=== PATIENT | female | born 1940 | race Two or more races ===

== ENCOUNTER → 2020-08-02 11:45 | Outpatient (BNVA) | payer MEDICARE, MEDICAID, SELFPAY | PROVIDERS: PCP Internal Medicine; Visit Provider Internal Medicine Cardiovascular Disease | DX: I70.0 Atherosclerosis of aorta (principal); I35.1 Nonrheumatic aortic (valve) insufficiency; I51.89 Other ill-defined heart diseases | CPT/HCPCS: 93005; 99212 ==

== ENCOUNTER → 2021-09-08 08:37 | Outpatient (REF) | payer MEDICARE, MEDICAID, SELFPAY ==
--- NOTE | 2021-09-08 08:54 | CA_ITS ---
Transthoracic Echocardiogram Patient (Last, First, Middle): Sherry Randolph, Gender: Female Date of : 1940 Age: 81 Procedure Date: 09/08/2021 Procedure Type: Transthoracic Echocardiogram Location: OP Height: 154.94 cm Weight: 63.5 kg BSA: 1.62 m2 Heart Rate: bpm BP: 139 / 77 mmHg Carpet Layer Helper: ERIKA Referring MD: Thad Nieves MD Symptoms: I35.1 NON RHEU AORTIC V I, I10 HTN I51.89 OTHER HD Study Quality: Good ECG Rhythm: Sinus Conclusions: - The left ventricular systolic function is normal. The calculated ejection fraction is 67% by biplane method. - There is mild aortic valve stenosis. There is moderate aortic valve regurgitation. - There is mild mitral valve regurgitation. - There is mild tricuspid valve regurgitation. - Mild pulmonary hypertension is present. Findings Left Ventricle Normal left ventricular cavity size. The left ventricular systolic function is normal. The calculated ejection fraction is 67% by biplane method. There is no evidence of regional wall motion abnormalities. E/E prime ratio is >15, consistent with elevated filling pressures. Evidence suggests grade II (moderate) diastolic dysfunction. There is mild septal asymmetric hypertrophy. Right Ventricle Normal right ventricular cavity size and systolic function. Atria The left atrium is severely dilated. The right atrium is normal in size. Aortic Valve There is mild calcification of the aortic valve. There is mild aortic valve stenosis. The mean gradient is 13 mmHg. The aortic valve area is 1.75 cm2. There is moderate aortic valve regurgitation. Dimensionless index 0.5. Mitral Valve There is mild mitral annular calcification. There is mild mitral valve regurgitation. There is no mitral valve stenosis. Pulmonic Valve There is mild pulmonic valve regurgitation. Tricuspid Valve Normal tricuspid valve structure. There is mild tricuspid valve regurgitation. The right ventricular systolic pressure is 44 mmHg. Mild pulmonary hypertension is present. Great Vessels The asc aorta is normal in size. Venous The inferior vena cava is normal in size and collapses greater than 50% with inspiration. Pericardium/Pleural There is no evidence of pericardial effusion. Prior Study Comparison No significant change compared to prior study dated: 05/25/2019. Measurements 2D Linear Measurements IVSd: 1.09 0.6-0.9/0.6-1.0 cm LVIDd: 4.57 3.9-5.3/4.2-5.9 cm LVIDd Index: 2.82 2.4-3.2/2.2-3.1 cm/m2 LVIDs: 3.16 2.0-3.6 cm LVPWd: 0.95 0.7-1.1 cm LA Diam: 3.30 2.7-3.8/3.0-4.0 cm LAIDs Index: 2.04 1.5-2.3 cm/m2 LV Mass: 200.69 67-162/88-224 g LV Mass Index: 123.88 43-95/49-115 g/m2 LVOT Diam: 2.00 3.0+(-)1.3 cm 2D Systolic Function EF 4C: 68.70 >55% EF 2C: 67.00 >55% EF BiP: 66.70 >55% Mitral Valve MV Pk E: 1.03 MV PK A: 0.72 MV Decel Time: 184.00 E/A: 1.40 E'Lateral: 8.27 E'Medial: 4.68 E/E' Med: 22.00 E/E' Lat: 12.50 PHT: 54.00 MVA PHT: 4.07 Decel [place]: 5.61 Aortic Valve AoV Pk Neftali: 2.40 AoV Mn Neftali: 1.70 AoV VTI: 0.65 AoV Pk Grad: 23.00 Aov Mn Grad: 13.00 ADA Cont.VTI: 1.75 AI Pk Neftali: 5.47 AI [place]: 2.91 LVOT LVOT Pk Neftali: 1.20 LVOT Mn Neftali: 0.98 LVOT VTI: 0.36 LVOT Pk Grad: 6.00 LVOT Mn Grad: 4.00 LVOT Diam: 2.00 LVOT Area: 3.14 Diastolic Function MV Pk E: 1.03 MV Pk A: 0.72 E/A: 1.40 E'Medial: 4.68 E/E' Med: 22.00 E' Laterial: 8.27 E/E' Lat: 12.50 Right Ventricle TAPSE (mm): 18.40 TVS' Neftali: 9.14 Tricuspid Valve TR Pk Neftali: 3.22 TR Pk Grad: 41.00 RA Press: 3.00 RVSP: 44.00 Great Vessels Aorta Sinus of Valsalva: 3.03 2.0-3.[address] [place]: 2.34 1.7-3.4 cm Ao Asc: 2.70 2.1-3.4 cm Ao Arch: 3.00 Updated in Other Vendor System with Status of Final Arvin Olvera MD electronically signed on 09/09/2021 11:33:08 AM with status of Final
== END ==
LOC: HO.CARD 08:37
PROVIDERS: Visit Provider Internal Medicine Cardiovascular Disease
DX: I36.1 Nonrheumatic tricuspid (valve) insufficiency (principal)
CPT/HCPCS: 93306

== ENCOUNTER → 2021-09-22 13:02 | Outpatient (BNVA) | payer MEDICARE, MEDICAID, SELFPAY | PROVIDERS: PCP Internal Medicine; Referring Provider Internal Medicine; Visit Provider Internal Medicine Cardiovascular Disease | DX: R07.2 Precordial pain (principal); I35.1 Nonrheumatic aortic (valve) insufficiency; I35.0 Nonrheumatic aortic (valve) stenosis; Z79.82 Long term (current) use of aspirin | CPT/HCPCS: 93005; 99212 ==

== ENCOUNTER → 2021-10-08 08:21 | Outpatient (REF) | payer MEDICARE, MEDICAID, SELFPAY ==
--- NOTE | ~2021-10-08 | NM_ITS ---
Lexiscan Myocardial perfusion study Indication: Chest pain, assess for coronary disease and ischemia Technique: The patient was brought in for a Lexiscan perfusion study on 10/08/2021 and was injected 0.4 mg of Lexiscan intravenously. Within a minute of this injection 30 mCi of sestamibi was given intravenously. Images were obtained using the SPECT gamma camera interlaced with the gating device. Images were obtained in supine position. Resting perfusion study was performed on 10/09/2021. Patient was administered 30 mCi of sestamibi intravenously at rest. Images were then obtained in supine position. Total DLP 74mGy-cm. Images were processed with the software and compared side to side in short axis, horizontal long axis and vertical long axis views. Findings: Raw acquisition reviewed. The stress perfusion study showed no significant perfusion abnormality. With CT attenuation correction, perfusion in the anterior wall as well as apex looks worse most likely artifactual. The gated study shows diminished LV systolic function with calculated LVEF of 47%. LV cavity is normal in size. The gated study shows normal wall thickening and contraction of segments. Resting study shows no significant perfusion abnormality. Gating at rest reveals normal wall motion with ejection fraction at 49%. The findings are consistent with no definite reversible or fixed perfusion defects. NM/NM michelle perf SPECT rest & str Impression: 1. Myocardial perfusion imaging study shows likely normal myocardial perfusion. No definitive evidence of any ischemia or infarction. 2. Gated LVEF is 47% during stress and 49% during rest. 3. Transient ischemic dilatation not present. EKG component of the test reported separately.
--- NOTE | 2021-10-08 08:26 | CA_ITS ---
Acquisition Time: 2021-10-08 08:25:18 Total Exercise Time: 00:02:00 Test Indications: CP Medications: SEE CHART Protocol: LEXISCAN Max HR: 091 BPM 65% of Pred: 140 BPM Max BP: 122/064 mmHG Max Work Load: 1.0 METS Pharmacological stress test using Lexiscan while sitting and kicking her legs. Pt tolerated well, denies any anginal sx. Mild SOB and BAEZ. EKG with occasional PVC s non-diagnostic for ischemia. Nuclear images to follow. Normotensive response to test. Test reviewed with Dr. Nieves. Referred By: Thad Nieves Overread By: Nava Hanna NP
== END ==
LOC: HO.CARD 08:21
PROVIDERS: Visit Provider Internal Medicine Cardiovascular Disease
DX: R07.2 Precordial pain (principal)
CPT/HCPCS: 78452; 93017; A9500; J0280; J2785

== ENCOUNTER → 2022-02-03 09:17 | Outpatient (BNVA) | payer MEDICARE, MEDICAID, SELFPAY | PROVIDERS: PCP Internal Medicine; Referring Provider Internal Medicine; Visit Provider Internal Medicine Cardiovascular Disease | DX: I35.0 Nonrheumatic aortic (valve) stenosis (principal); R00.1 Bradycardia, unspecified | CPT/HCPCS: 93005; 99212 ==

== ENCOUNTER → 2022-03-03 10:41 | Outpatient (REF) | payer MEDICARE, MEDICAID, SELFPAY ==
--- NOTE | 2022-03-03 10:45 | HM_ITS ---
Conclusion: 1. Patient was monitored for total period of 3 days and 2 hours 2. Baseline rhythm was normal sinus rhythm with average heart of 69 beats per minute 3. No significant pauses or bradycardia noted 4. Total of 295 isolated PVCs accounting for 0.11% of total beats account for occasional PVCs 5. Total of 5127 PACs accounting for 1.89% of total beats accounting for frequent PACs 6. Few short burst of SVTs consistent with atrial tachycardia 7. No patient reported events MTDD
== END ==
LOC: HO.CARD 10:41
PROVIDERS: PCP Internal Medicine; Visit Provider Internal Medicine Cardiovascular Disease
DX: R00.1 Bradycardia, unspecified (principal)
CPT/HCPCS: 93242

== ENCOUNTER → 2022-07-16 14:56 | Outpatient (BNVA) | payer MEDICARE, MEDICAID, SELFPAY | PROVIDERS: PCP Internal Medicine; Referring Provider Internal Medicine; Visit Provider Internal Medicine Cardiovascular Disease | DX: I35.0 Nonrheumatic aortic (valve) stenosis (principal); I10 Essential (primary) hypertension | CPT/HCPCS: 99212 ==

== ENCOUNTER → 2022-09-22 09:48 | Outpatient (REF) | payer MEDICARE, MEDICAID, SELFPAY ==
--- NOTE | 2022-09-22 09:55 | CA_ITS ---
Transthoracic Echocardiogram Patient (Last, First, Middle): Sherry Winter, Gender: Female Date of : 1940 Age: 82 Procedure Date: 09/22/2022 Procedure Type: Transthoracic Echocardiogram Location: OP Height: 152.4 cm Weight: 61.24 kg BSA: 1.58 m2 Heart Rate: 55 bpm BP: 130 / 62 mmHg Dormitory Maid: SB Referring MD: Thad Nieves MD Symptoms: I35.1 - Nonrheumatic aortic (valve) insufficiency Study Quality: Adequate ECG Rhythm: Bradycardia Conclusions: - The left ventricular systolic function is normal. The calculated ejection fraction is 60% by biplane method. - The left atrium is severely dilated. - There is mild to moderate aortic valve stenosis. The mean gradient is 19 mmHg. The aortic valve area is 1.19 cm2. There is mild to moderate aortic valve regurgitation. - There is moderate posterior mitral annular calcification. - Mild pulmonary hypertension is present. Findings Left Ventricle Normal left ventricular cavity size. There is normal left ventricular wall thickness. The left ventricular systolic function is normal. The calculated ejection fraction is 60% by biplane method. There is no evidence of regional wall motion abnormalities. Evidence suggests grade II (moderate) diastolic dysfunction. LV peak GLS -17%. Right Ventricle Normal right ventricular cavity size and systolic function. Atria The left atrium is severely dilated. The right atrium is normal in size. Aortic Valve There is moderate calcification of the aortic valve. There is mild to moderate aortic valve stenosis. The mean gradient is 19 mmHg. The aortic valve area is 1.19 cm2. There is mild to moderate aortic valve regurgitation. Dimensionless index 0.38. Stroke volume index 53ml/m2. Mitral Valve There is moderate posterior mitral annular calcification. There is mild mitral valve regurgitation. There is no mitral valve stenosis. Pulmonic Valve There is trace to mild pulmonic valve regurgitation. Tricuspid Valve There is mild tricuspid valve regurgitation. Mild pulmonary hypertension is present. Great Vessels The aorta was not well visualized. The aortic annulus is normal in size. Venous The inferior vena cava is normal in size and collapses greater than 50% with inspiration. Pericardium/Pleural There is no evidence of pericardial effusion. Prior Study Comparison No significant change compared to prior study dated: 09/08/2021. Measurements 2D Linear Measurements IVSd: 0.63 0.6-0.9/0.6-1.0 cm LVIDd: 5.14 3.9-5.3/4.2-5.9 cm LVIDd Index: 3.25 2.4-3.2/2.2-3.1 cm/m2 LVIDs: 3.53 2.0-3.6 cm LVPWd: 0.53 0.7-1.1 cm LA Diam: 3.50 2.7-3.8/3.0-4.0 cm LAIDs Index: 2.22 1.5-2.3 cm/m2 LV Mass: 118.33 67-162/88-224 g LV Mass Index: 74.89 43-95/49-115 g/m2 LVOT Diam: 2.00 3.0+(-)1.3 cm 2D Systolic Function EF 4C: 60.90 >55% EF 2C: 57.90 >55% EF BiP: 60.00 >55% Mitral Valve MV Pk E: 0.92 MV PK A: 0.92 MV Decel Time: 153.00 E/A: 1.00 E'Lateral: 6.74 E'Medial: 4.24 E/E' Med: 21.70 E/E' Lat: 13.70 PHT: 45.00 MVA PHT: 4.89 Decel [place]: 6.03 Aortic Valve AoV Pk Neftali: 2.87 AoV Mn Neftali: 2.08 AoV VTI: 0.70 AoV Pk Grad: 33.00 Aov Mn Grad: 19.00 ADA Cont.VTI: 1.19 AI Pk Neftali: 4.90 AI VTI: 3.19 LVOT LVOT Pk Neftali: 1.08 LVOT Mn Neftali: 0.76 LVOT VTI: 0.27 LVOT Pk Grad: 5.00 LVOT Mn Grad: 3.00 LVOT Diam: 2.00 LVOT Area: 3.14 Diastolic Function MV Pk E: 0.92 MV Pk A: 0.92 E/A: 1.00 E'Medial: 4.24 E/E' Med: 21.70 E' Laterial: 6.74 E/E' Lat: 13.70 Right Ventricle TAPSE (mm): 20.00 TVS' Neftali: 11.60 Tricuspid Valve TR Pk Neftali: 3.24 TR Pk Grad: 42.00 RA Press: 3.00 RVSP: 45.00 Great Vessels Aorta Sinus of Valsalva: 3.10 2.0-3.5 cm Ao Asc: 3.20 2.1-3.4 cm Ao Arch: 2.80 Pulmonary Veins Pulm Vein S/D 1.10 Pulmonary Valve PV Pk Neftali: 1.04 Peak PV Grad: 4.00 DE Pk Neftali: 1.48 Updated in Other Vendor System with Status of Final Arvin Olvera MD electronically signed on 09/22/2022 4:31:56 PM with status of Final
== END ==
LOC: HO.CARD 09:48
PROVIDERS: PCP Internal Medicine; Visit Provider Internal Medicine Cardiovascular Disease
DX: I35.1 Nonrheumatic aortic (valve) insufficiency (principal)
CPT/HCPCS: 93306; 93356

== ENCOUNTER 2023-01-12 13:40 | Outpatient (AMB) | payer MEDICARE, MEDICAID, SELFPAY ==
--- NOTE | 2023-01-12 13:42 | A.OFFVIS_ITS ---
Intake Vital Signs 01/12/23 13:43 Height 5 ft 1 in Weight 130 lb 1.164 oz BMI 24.6 BP 120/76 Blood Pressure Location Lt brachial Position Sitting Pulse 58 Intake Visit Reasons: 6 mth s/p echo Intake Note: 6 month follow-up with ekg after echo feeling good Clinical Training Coordinator Required: Yes Clinical Training Coordinator Name: Marivel barroso Pet Care Assistant: Pet Care Assistant Present Accompanied by: Daughter Allergies No Known Allergies Allergy (Verified 02/03/22 09:20) Medication List - Last Reconciled 01/12/23 by Thad Nieves MD amlodipine 5 mg PO BID 90 days aspirin (Adult Aspirin Regimen) 81 mg PO DAILY atorvastatin 20 mg PO DAILY budesonide-formoterol 80-4.5 mcg/actuation inhalation tiotropium bromide inhalation tiotropium bromide 1.25 mcg/actuation (Spiriva Respimat) 2 puffs inhalation DAILY HPI HPI Comments History of Present Illness Details Sherry comes for follow-up. Recent echocardiogram shows moderate to moderately severe aortic stenosis. History was obtained with help of a certifi ed radio television technical director. She denies any exertional chest pain of worsening shortness of breath. Complains of fatigue but this is not consistent. Denies any orthopnea, PND. No lightheadedness, syncope. Denies any prolonged palpitation irregular heartbeat. She does complain of hypertrophic scar at the site of prior sternotomy. [facility] Medical History Aortic regurgitation Aortic stenosis Diastolic dysfunction HTN (hypertension) Papillary fibroelastoma Thoracic aortic atherosclerosis Surgical History History of partial hysterectomy Hx of cardiac cath Hx of cholecystectomy Family History Father No problems noted. Mother CAD (coronary artery disease) Social History Alcohol intake: never Patient Tobacco Use Status: Never used Tobacco Review of Systems Const Denies chills, Denies fatigue, Denies fever(s), Denies frequent falls, Denies weakness, Denies weight gain and Denies weight loss ENT Denies dizziness Card Denies chest pain, Denies leg edema, Denies lightheadedness, Denies palpitations, Denies dyspnea, Denies dyspnea on exertion, Denies orthopnea and Denies other (loss of consciousness) Resp Denies cough, Denies dyspnea and Denies dyspnea on exertion GI Denies hematochezia and Denies change in stool character Musc Denies abnormal gait, Denies muscle weakness, Denies numbness, Denies radiating pain into limb and Denies tingling Neuro Denies abnormal gait, Denies dizziness, Denies frequent falls, Denies numbness, Denies tingling and Denies weakness Endo Denies fatigue and Denies palpitations Physical Exam Vital Signs: Last Vital Signs Pulse 58 01/12/23 13:43 BP 120/76 01/12/23 13:43 BMI result Body Mass Index 24.6 Const General: cooperative, comfortable, no acute distress, alert and awake Nutritional Appearance: overweight Orientation/consciousness: patient oriented x3 Limitations: no limitations Neck Neck: Yes trachea midline, Yes supple and Yes no JVD Chest Chest palpation & inspection: normal inspection of the chest and other (Te nderness at the site of keloid in the mid sternotomy site.) Resp Effort & Inspection: normal respiratory effort Auscultation: clear to auscultation bilaterally and diminished lung sounds Cardio Jugular venous distension: no JVD Palpation: normal PMI Rate: regular rate Rhythm: regular rhythm Heart sounds: S1 normal heart sound present, S2 normal heart sound present and Murmur heart sound present diastolic at the base and systolic mid, decrescendo and crescendo GI Auscultation: normal bowel sounds Skin General skin exam: no rashes or lesions noted Neuro General: patient oriented x3 and no focal motor deficits Extrem General: Yes no clubbing, cyanosis or edema Psych Appearance: grossly normal Office Procedures EKG Details: EKG shows sinus bradycardia 58 beats per minute with normal EKG [id number], Complete Assessment & Plan Assessment & Plan (1) Aortic stenosis: Code(s): I35.0 - Nonrheumatic aortic (valve) stenosis Plan: 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 Has not developed moderate aortic stenosis and [id number] aortic regurgitation. Clinically stable without any symptoms. Cardinal symptoms associated aortic stenosis were discussed. SBE prophylaxis as per ACC/ aha guidelines. Continue low-dose aspirin therapy for life. Continue aggressive control blood pressure see below. Continue aggressive statin therapy with goal LDL less than 70 mg/dL given that she has thoracic aortic athero sclerosis. Currently does not require any intervention for aortic valve disease. (2) HTN (hypertension): Code(s): I10 - Essential (primary) hypertension Plan: Hypertension with labile blood pressure with high pulse pressure consistent with diffuse atherosclerotic disease. Continue aggressive control blood pressure. Currently appears to be well optimized. Advised to avoid salt intake which is causing spikes in her blood pressure. Target goal blood pressure less than 140/80. Continue to monitor blood pressure at home. Will follow up in clinic in 1 year's time, sooner p.r.n.. Thank you for allowing me to partake in the care Orders: Orders CA echo transthoracic complete 50 Weeks I35.0 - Nonrheumatic aortic (valve) stenosis Coding Level of Care Code Est Pt Level 4 (36610) Diagnoses Aortic stenosis I35.0 HTN (hypertension) I10 CPT Codes EKG - CPT: [id number], Complete ([id number])
[2023-01-12 13:43] VITALS: BP 120/76; PULSE 58; BMI 24.6
== END 2023-01-12 14:05 | disposition home or self-care (01) ==
PROVIDERS: Visit Provider Internal Medicine Cardiovascular Disease
DX: I35.0 Nonrheumatic aortic (valve) stenosis (principal); I10 Essential (primary) hypertension
CPT/HCPCS: 93010; 99214

== ENCOUNTER → 2023-01-12 13:40 | Outpatient (BNVA) | payer MEDICARE, MEDICAID, SELFPAY | PROVIDERS: Visit Provider Internal Medicine Cardiovascular Disease | DX: I35.0 Nonrheumatic aortic (valve) stenosis (principal); I10 Essential (primary) hypertension; Z98.890 Other specified postprocedural states; Z79.82 Long term (current) use of aspirin; Z79.899 Other long term (current) drug therapy | CPT/HCPCS: 93005; 99212 ==

== ENCOUNTER 2023-06-16 10:55 | Outpatient (REF) | payer MEDICARE, MEDICAID, SELFPAY ==
[2023-06-16 16:49] LABS: Alanine Aminotransferase 12 U/L (0-31); Albumin Level 3.9 g/dL (3.5-5.0); Alkaline Phosphatase 121 U/L (39-117); Anion Gap 11 (12-20); Aspartate Amino Transferase 24 U/L (5-31); Bilirubin Total 0.5 mg/dL (0.0-1.0); Blood Urea Nitrogen 17 mg/dL (9-16); Calcium 10.1 mg/dL (8.4-10.2); Carbon Dioxide 28 mmol/L (22-29); Chloride 105 mmol/L (96-108); Estimated Glomerular Filt Rate > 60; Glucose Fasting 83 mg/dL (60-99); Potassium 4.2 mmol/L (3.3-5.1); Sodium 140 mmol/L (135-145); Total Protein 7.1 g/dL (6.5-8.0)
[2023-06-16 17:13] LABS: Vitamin D 25-OH Total 36.7 ng/mL (>30)
[2023-06-17 14:33] LABS: Vitamin B12 627 pg/mL (200-900)
== END 2023-06-16 10:56 | disposition home or self-care (01) ==
LOC: HO.CHCLDS 10:55
PROVIDERS: Visit Provider Internal Medicine
DX: R53.83 Other fatigue (principal); Z79.899 Other long term (current) drug therapy
CPT/HCPCS: 36415; 80053; 82306; 82607

== ENCOUNTER 2023-09-07 11:18 | Outpatient (REF) | payer MEDICARE, MEDICAID, SELFPAY ==
[2023-09-07 14:10] LABS: Lipase 38 U/L (8-78)
[2023-09-07 14:31] LABS: TSH reflex Free T4 0.59 uIU/mL (0.32-4.0)
== END 2023-09-07 11:19 | disposition home or self-care (01) ==
LOC: HO.LAB 11:18
PROVIDERS: PCP Internal Medicine; Visit Provider Nurse Practitioner Family
DX: R10.10 Upper abdominal pain, unspecified (principal); K59.04 Chronic idiopathic constipation; Z87.19 Personal history of other diseases of the digestive system
CPT/HCPCS: 36415; 83690; 84443; 99202

== ENCOUNTER 2023-09-07 11:18 | Outpatient (AMB) | payer MEDICARE, MEDICAID, SELFPAY ==
--- NOTE | 2023-09-07 11:24 | MHC.OFFVIS ---
Intake Vital Signs 09/07/23 11:29 Height 5 ft 1 in Weight 127 lb 13.89 oz BMI 24.2 BP 131/63 Blood Pressure Location Lt brachial Position Sitting Pulse 56 Intake Visit Reasons: Chronic Gastritis Intake Note: Sherry presents in the office as a new patient for chronic gastritis. CC: She is having pains in the stomach, she has had 3 bowel obstructions. This is her first GI specialist. Obstetrics And Gynecology Professor Required: Yes Allergies No Known Allergies Allergy (Verified 02/03/22 09:20) HPI Chronic Gastritis HPI Details 83-year-old female with past medical history of hypertension, CAD, hyperlipidemia, GERD, constipation, history of SBO is here today for initial consultation. Patient reports that she has never seen GI specialty, has been suffering with constipation for some time. Patient reports that last year she had 2 episodes of small-bowel obstruction and admitted to [facility]. This your patient was in [place] in June and was admitted again with small-bowel obstruction. Patient did not require surgical intervention. Patient was sent home with senna and MiraLax. States that she never received senna and states that MiraLax does not work. Patient uses prune juice and increased the amount of vegetables that she eats in order to have better bowel movements. Patient states that she continues to have constipation. Patient reports that she is drinking fluids, however she believes that she does not drink enough. Since discharge patient has been feeling well. Denies any abdominal pain or discomfort. However patient does report occasional epigastric pain that is not necessarily related to meals. Patient denies any nausea or vomiting. Denies any melena, hematochezia, unintentional weight loss or ribbon like stools. We will request records from [facility] from her last 2 admissions. Patient denies dyspepsia, dysphagia or odynophagia. Patient reports that she no longer takes anything for acid reflux and reports that she has been doing well [facility] Medical History Aortic stenosis Thoracic aortic atherosclerosis Aortic regurgitation Diastolic dysfunction HTN (hypertension) Papillary fibroelastoma Surgical History (Updated 09/07/23 @ 11:30 by BRISA Snow) Hx of colonoscopy Hx of cholecystectomy Hx of cardiac cath History of partial hysterectomy Family History Father No problems noted. Mother CAD (coronary artery disease) Social History Alcohol intake: never Patient Tobacco Use Status: Never used Tobacco Review of Systems Const Denies weight gain and Denies weight loss ENT Reports no additional complaints, Denies dysphagia and Denies odynophagia Card Reports no additional complaints Resp Reports no additional complaints GI Reports abdominal pain (Epigastric), Denies belching, Denies melena, Reports bloating, Denies change in bowel habits, Reports constipation, Denies dysphagia, Denies excessive flatus, Denies dyspepsia, Denies heartburn, Denies diarrhea, Denies loose stools, Denies nausea, Denies odynophagia and Denies vomiting Reports no additional complaints Musc Reports no additional complaints Neuro Reports no additional complaints Psych Reports no additional complaints Endo Reports no additional complaints Physical Exam Vital Signs: Last Vital Signs Pulse 56 09/07/23 11:29 BP 131/63 09/07/23 11:29 BMI result Body Mass Index 24.2 Const General: healthy appearing, no acute distress and well developed Nutritional Appearance: well nourished Orientation/consciousness: patient oriented x3 Resp Effort & Inspection: normal respiratory effort, able to speak in complete sentences, no tracheal deviation and symmetric chest movement Auscultation: clear to auscultation bilaterally Cardio Rate: regular rate GI Inspection: Yes normal to inspection and No distended Palpation (GI): Soft to palpation, not firm, nontender and No hepatosplenomegaly present Auscultation: normal bowel sounds General: Yes no CVA tenderness Back/Spine/Pelvis Back: no CVA tenderness Skin General skin exam: elasticity normal, turgor normal and dry skin Neuro General: patient oriented x3 Psych Appearance: grossly normal Mental Status: mental status grossly normal Assessment & Plan Assessment & Plan (1) History of small bowel obstruction: Code(s): Z87.19 - Personal history of other diseases of the digestive system (2) Abdominal pain: Code(s): R10.9 - Unspecified abdominal pain Qualifiers: Abdominal location: upper abdomen, unspecified Qualified Code(s): R10.10 - Upper abdominal pain, unspecified (3) Chronic idiopathic constipation: Code(s): K59.04 - Chronic idiopathic constipation Plan Patient has been suffering from chronic constipation and is not taking anything on a daily basis. The importance of staying on something every day discussed with patient. Patient will take 2 senna every evening to help her move her bowels better. Patient also was instructed to drink plenty fluids. Not sure what caused the obstructions in the past if it was constipation and increased peristalsis could have caused the blockage or if patient has any tumors that could be contributing to that. I will send her for enterography. Patient will return in 2 months, sooner on as needed basis. Patient is agreeable to this plan and verbalizes understanding of instructions. She was given the opportunity to ask questions and all questions answered. Thank you for allowing me to participate in her care Orders: Orders Lipase Today R10.9 - Unspecified abdominal pain TSH reflex Free T4 Today K59.00 - Constipation, unspecified CT enterography Today R10.9 - Unspecified abdominal pain, Z87.19 - Personal history of other diseases of the digestive system Medications: New sennosides (Natural Senna Laxative) 17.2 mg (2 x 8.6 mg) PO BEDTIME 60 tabs 3RF constipation K59.00 - Constipation, unspecified sennosides (Natural Senna Laxative) 17.2 mg (2 x 8.6 mg) PO BEDTIME 60 tabs 3RF constipation K59.00 - Constipation, unspecified Coding Level of Care Code New Pt Level 4 (73314) Diagnoses History of small bowel obstruction Z87.19 Pain of upper abdomen R10.10 Abdominal location: upper abdomen, unspecified Chronic idiopathic constipation K59.04 Time Spent (min) 45 Comment 30 minutes spent with patient and additional 15 minutes spent reviewing her records
[2023-09-07 11:29] VITALS: BP 131/63; PULSE 56; BMI 24.2
== END 2023-09-07 12:08 | disposition home or self-care (01) ==
PROVIDERS: PCP Internal Medicine; Visit Provider Nurse Practitioner Family
DX: K59.04 Chronic idiopathic constipation (principal); Z87.19 Personal history of other diseases of the digestive system
CPT/HCPCS: 99204

== ENCOUNTER 2023-10-27 09:08 | Outpatient (REF) | payer MEDICARE, MEDICAID, SELFPAY ==
--- NOTE | ~2023-10-27 | CT_ITS ---
EXAMINATION: CT ENTEROGRAPHY ABDOMEN AND PELVIS WITH CONTRAST CLINICAL INFORMATION: Personal history of other diseases of the digestive system COMPARISON: , Abdominal pain TECHNIQUE: Study performed with oral VoLumen (1350 mL) and 480 mL of water to distend the abdomen. The patient was injected with 85 mL Omnipaque 350 intravenous contrast which was administered without adverse effect. Coronal and sagittal reformatted images were obtained at the technologist's workstation. This CT examination was performed using dose optimization techniques as appropriate, variously including the following: *Automated exposure control *Adjustment of mA and/or kV according to patient size (this includes techniques or standardized protocols for targeted exams where dose is matched to indication/reason for exam; i.e. extremities or head) *Use of iterative reconstruction technique DLP: 342 mGy-cm FINDINGS: GASTROINTESTINAL FINDINGS: Malrotation of the small bowel. Stomach: Well-distended and normal in appearance. Small intestine: Satisfactorily distended and normal in appearance. Large intestine: Well-distended and normal in appearance. No perirectal changes demonstrated. The appendix is not visualized. Additional findings: No abnormal enhancement of the vasa recta or significant mesenteric or retroperitoneal lymphadenopathy is seen. No abdominal abscess or fistulous tract demonstrated. ABDOMINAL AND PELVIC CT FINDINGS: Liver, gallbladder, biliary tract: Status post cholecystectomy. Liver is unremarkable. No focal hepatic lesion or intrahepatic biliary ductal dilatation. Pancreas: Unremarkable. Spleen: Unremarkable. 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 Right renal hypertrophy with multiple lobulated appearing renal contour, no discrete renal lesion is visualized, some cortical thinning. No nephrolithiasis. No hydronephrosis. Ureters and bladder: Unremarkable. Lymphovascular structures: Unremarkable Bones: Scoliosis of the spine, degenerative changes of the spine. Partially visualized median sternotomy wires. Lung bases: Clear CT/CT enterography IMPRESSION: * Malrotation of the small bowel. No evidence of obstruction. 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 Right renal hypertrophy with multiple lobulated appearing renal contour, no discrete renal lesion is visualized, some cortical thinning.
[2023-10-27] MEDS: iohexoL 350 MG/ML 100 ML INFUS..BTL IV (10:48)
[2023-10-27] MEDS: Sorbitol/Mannit/Xanth Imaging 500 ML LIQUID 1500 ML PO (10:50)
[2023-10-27 16:26] LABS: Creatinine POC 0.8 mg/dL (0.5-1.4); GFR POC > 60
== END 2023-10-27 09:09 | disposition home or self-care (01) ==
LOC: HO.CT 09:08
PROVIDERS: PCP Internal Medicine; Visit Provider Nurse Practitioner Family
DX: R10.9 Unspecified abdominal pain (principal); Z87.19 Personal history of other diseases of the digestive system
CPT/HCPCS: 74177; 82565; Q9967

== ENCOUNTER 2023-11-08 10:14 | Outpatient (AMB) | payer MEDICARE, MEDICAID, SELFPAY ==
[2023-11-08 10:16] VITALS: BP 166/73; BMI 24.8
--- NOTE | 2023-11-08 10:16 | MHC.OFFVIS ---
Vital Signs 11/08/23 10:16 Height 5 ft 1 in Weight 131 lb 6.328 oz BMI 24.8 BP 166/73 H Blood Pressure Location Lt brachial Position Sitting Intake Visit Reasons: History of SBO, constipation Intake Note: Patient in office today in follow up of labs and CT. CC: Patient reports doing well from constipation and abdominal pain. She denies any new GI symptoms today. She reports having knee pain and sometimes feeling out of breath. Jet Engine Mechanic Required: Yes Accompanied by: Self / Same As Patient Allergies No Known Allergies Allergy (Verified 11/08/23 10:21) HPI HPI History of SBO, constipation: Details: LAST VISIT History of small bowel obstruction Abdominal pain Chronic idiopathic constipation Plan Patient has been suffering from chronic constipation and is not taking anything on a daily basis. The importance of staying on something every day discussed with patient. Patient will take 2 senna every evening to help her move her bowels better. Patient also was instructed to drink plenty fluids. Not sure what caused the obstructions in the past if it was constipation and increased peristalsis could have caused the blockage or if patient has any tumors that could be contributing to that. I will send her for enterography. Patient will return in 2 months, sooner on as needed basis. Patient is agreeable to this plan and verbalizes understanding of instructions. She was given the opportunity to ask questions and all questions answered. ? Thank you for allowing me to participate in her care Orders Orders Lipase Today R10.9 TSH reflex Free T4 Today K59.00 CT enterography Today R10.9, Z87.19 Medications New sennosides (Natural Senna Laxative) 17.2 mg (2 x 8.6 mg) PO BEDTIME 60 tabs 3RF constipation K59.00 sennosides (Natural Senna Laxative) 17.2 mg (2 x 8.6 mg) PO BEDTIME 60 tabs 3RF constipation K59.00 TODAY'S VISIT Patient is here today for follow-up and to discuss CT enterography results as well as blood work. Patient had CT enterography done on the 26 of October and results are not available yet. Patient reports that she has been feeling better since the last time I have seen her. She is taking Senokot 2 tablets every night and reports that she is moving her bowels daily. Patient no longer is experiencing abdominal pain. Patient states that she was told that she has hernia while seen in the hospital in [place]. Patient denies abdominal pain, however she reports that she can feel the hernia when she presses on her upper abdomen, no pain. Patient denies any nausea or vomiting. Denies any melena, hematochezia, unintentional weight loss or ribbon like stools. PFSH Medical History Aortic stenosis Thoracic aortic atherosclerosis Aortic regurgitation Diastolic dysfunction HTN (hypertension) Papillary fibroelastoma Surgical History Hx of colonoscopy Hx of cholecystectomy Hx of cardiac cath History of partial hysterectomy Family History Father No problems noted. Mother CAD (coronary artery disease) Social History Alcohol intake: never Patient Tobacco Use Status: Never used Tobacco Review of Systems Const Denies weight gain and Denies weight loss ENT Reports no additional complaints, Denies dysphagia and Denies odynophagia Card Reports no additional complaints Resp Reports no additional complaints GI Denies abdominal pain, Denies belching, Denies melena, Denies bloating, Denies change in bowel habits, Denies dysphagia, Denies excessive flatus, Denies dyspepsia, Denies heartburn, Denies diarrhea, Denies loose stools, Denies nausea, Denies odynophagia and Denies vomiting Musc Reports no additional complaints Neuro Reports no additional complaints Psych Reports no additional complaints Endo Reports no additional complaints Physical Exam Vital Signs: BMI result Body Mass Index 24.8 Const General: healthy appearing, no acute distress and well developed Nutritional Appearance: well nourished Orientation/consciousness: patient oriented x3 Resp Effort & Inspection: normal respiratory effort, able to speak in complete sentences, no tracheal deviation and symmetric chest movement Auscultation: clear to auscultation bilaterally Cardio Rate: regular rate GI Inspection: Yes normal to inspection and No distended Palpation (GI): Soft to palpation, not firm, nontender and No hepatosplenomegaly present Auscultation: normal bowel sounds General: Yes no CVA tenderness Back/Spine/Pelvis Back: no CVA tenderness Skin General skin exam: elasticity normal, turgor normal and dry skin Neuro General: patient oriented x3 Psych Appearance: grossly normal Mental Status: mental status grossly normal Results Reviewed Results Reviewed: Laboratory Tests 09/07/23 12:39 Lipase 38 TSH 0.59 Assessment & Plan Assessment & Plan (1) History of small bowel obstruction: Code(s): Z87.19 - Personal history of other diseases of the digestive system (2) Abdominal pain: Code(s): R10.9 - Unspecified abdominal pain Qualifiers: Abdominal location: left lower quadrant Qualified Code(s): R10.32 - Left lower quadrant pain (3) Chronic idiopathic constipation: Code(s): K59.04 - Chronic idiopathic constipation Plan Continue taking senna every night. Increase fluid intake and activity to promote better bowel motility. No tenderness noted on PE. Continue avoiding dietary triggers in late night snacking. Patient will be seen in 6 months, sooner on as needed basis. She is agreeable to this plan and verbalizes understanding of instructions. She was given the opportunity to ask questions and all questions answered. Thank you for allowing me to participate in his care Medications: Refilled sennosides (Natural Senna Laxative) 17.2 mg (2 x 8.6 mg) PO BEDTIME 180 tabs 3RF constipation K59.00 - Constipation, unspecified Coding Level of Care Code Est Pt Level 3 (33059) Diagnoses History of small bowel obstruction Z87.19 Left lower quadrant abdominal pain R10.32 Abdominal location: left lower quadrant Chronic idiopathic constipation K59.04 Time Spent (min) 25 Comment 15 minutes spent with patient and additional 10 minutes spent reviewing her records
== END 2023-11-08 10:44 | disposition home or self-care (01) ==
PROVIDERS: PCP Internal Medicine; Visit Provider Nurse Practitioner Family
DX: Z87.19 Personal history of other diseases of the digestive system (principal); R10.32 Left lower quadrant pain; K59.04 Chronic idiopathic constipation
CPT/HCPCS: 99213

== ENCOUNTER → 2023-11-08 10:14 | Outpatient (BNVA) | payer MEDICARE, MEDICAID, SELFPAY | PROVIDERS: PCP Internal Medicine; Visit Provider Nurse Practitioner Family | DX: K59.04 Chronic idiopathic constipation (principal); R10.32 Left lower quadrant pain; Z87.19 Personal history of other diseases of the digestive system; Z90.49 Acquired absence of other specified parts of digestive tract | CPT/HCPCS: 99212 ==

== ENCOUNTER 2024-01-13 13:11 | Outpatient (AMB) | payer MEDICARE, MEDICAID, SELFPAY ==
[2024-01-13 13:36] VITALS: BP 130/82; PULSE 67; BMI 22.9
--- NOTE | 2024-01-13 13:36 | A.OFFVIS_ITS ---
Vital Signs 01/13/24 13:36 Height 5 ft 1 in Weight 121 lb 4.068 oz BMI 22.9 BP 130/82 Blood Pressure Location Lt brachial Position Sitting Pulse 67 Intake Visit Reasons: Preop/ colonoscopy/1 yr f.up s/p echo Intake Note: Pre-op clearance colonscopy wtih ekg after echo c/o sharp pains in center of chest at times Cuff Stitcher Required: Yes Cuff Stitcher Services: Cuff Stitcher Present Cuff Stitcher Name: Verenice barroso Assistant Manager Airside Operations: Assistant Manager Airside Operations Present Accompanied by: Daughter Allergies No Known Allergies Allergy (Verified 11/08/23 10:21) Medication List - Last Reconciled 01/13/24 by Thad Nieves MD amlodipine 5 mg PO BID aspirin (Adult Aspirin Regimen) 81 mg PO DAILY atorvastatin 20 mg PO DAILY budesonide-formoterol 80-4.5 mcg/actuation inhalation fluticasone propion-salmeterol 115-21 mcg/actuation (Advair HFA) 2 puffs inhalation BID sennosides (Natural Senna Laxative) 17.2 mg (2 x 8.6 mg) PO BEDTIME tiotropium bromide 1.25 mcg/actuation (Spiriva Respimat) 2 puffs inhalation DAILY HPI Comments Details: Sherry comes for follow-up, accompanied by her daughter. Despite certified credit professional she is a poor historian and I had to ask for office medical education coordinator to help me with the interpretation. Patient had a recent echocardiogram at an outside institution which showed moderate aortic stenosis and moderate aortic regurgitation with normal LV ejection fraction. She says she has been getting short of breath suddenly when she overdoes something. On asking how long this symptoms have been going on she is not able to provide me an exact duration. Denies any orthopnea, PND. No associated chest discomfort. She is scheduled to undergo colonoscopy in near future. She takes all her medications. She has no lightheadedness, syncope. ON LICENSE OF [facility] Medical History Aortic stenosis Thoracic aortic atherosclerosis Aortic regurgitation Diastolic dysfunction HTN (hypertension) Papillary fibroelastoma Surgical History Hx of colonoscopy Hx of cholecystectomy Hx of cardiac cath History of partial hysterectomy Family History Father No problems noted. Mother CAD (coronary artery disease) Social History Alcohol intake: never Patient Tobacco Use Status: Never used Tobacco Review of Systems Const Denies chills, Denies fatigue, Denies fever(s), Denies frequent falls, Denies weakness, Denies weight gain and Denies weight loss ENT Denies dizziness Card Denies chest pain, Denies leg edema, Denies lightheadedness, Denies palpitations, Denies dyspnea, Denies dyspnea on exertion, Denies orthopnea and Denies other (loss of consciousness) Resp Denies cough, Denies dyspnea and Denies dyspnea on exertion GI Denies hematochezia and Denies change in stool character Musc Denies abnormal gait, Denies muscle weakness, Denies numbness, Denies radiating pain into limb and Denies tingling Neuro Denies abnormal gait, Denies dizziness, Denies frequent falls, Denies numbness, Denies tingling and Denies weakness Endo Denies fatigue and Denies palpitations Physical Exam Vital Signs: Last Vital Signs Pulse 67 01/13/24 13:36 BP 130/82 01/13/24 13:36 BMI result Body Mass Index 22.9 Const General: cooperative, comfortable, no acute distress, alert and awake Nutritional Appearance: overweight Orientation/consciousness: patient oriented x3 Limitations: no limitations Neck Neck: Yes trachea midline, Yes supple and Yes no JVD Chest Chest palpation & inspection: normal inspection of the chest and other (Tenderness at the site of keloid in the mid sternotomy site.) Resp Effort & Inspection: normal respiratory effort Auscultation: clear to auscultation bilaterally and diminished lung sounds Cardio Jugular venous distension: no JVD Palpation: normal PMI Rate: regular rate Rhythm: regular rhythm Heart sounds: S1 normal heart sound present, S2 normal heart sound present and Murmur heart sound present diastolic at the base and systolic mid, decrescendo and crescendo GI Auscultation: normal bowel sounds Skin General skin exam: no rashes or lesions noted Neuro General: patient oriented x3 and no focal motor deficits Extrem General: Yes no clubbing, cyanosis or edema Psych Appearance: grossly normal Office Procedures EKG Details: EKG shows normal sinus rhythm with occasional PVCs, unifocal with fixed coupling with nonspecific T-wave changes [id number], Complete Assessment & Plan Assessment & Plan (1) Preoperative cardiovascular examination: Code(s): Z01.810 - Encounter for preprocedural cardiovascular examination Category: Medical Plan: Preoperative cardiovascular risk stratification this elderly woman to undergo colonoscopy under general anesthesia. At this point in time patient has symptoms of shortness of breath but no anginal sounding chest discomfort. I would suggest her to undergo vasodilating myocardial perfusion imaging for further risk stratification. If this is within normal limits, she is optimized to undergo the procedure with low risk for perioperative cardiovascular morbidity mortality. (2) Aortic stenosis: Code(s): I35.0 - Nonrheumatic aortic (valve) stenosis Category: Medical Plan: Aortic stenosis which is moderate with associated moderate aortic regurgitation. No current symptoms suggestive of worsening aortic stenosis. Continue low-dose aspirin therapy. Continue aggressive vascular risk factor modification. Continue statin therapy. Blood pressure is currently well optimized. Goal LDL less than 100 mg/dL. Will follow up in the clinic in 1 year's time, sooner p.r.n.. Thank you for allowing me to partake in the care Orders: Orders CA echo transthoracic complete 1 Year I35.0 - Nonrheumatic aortic (valve) stenosis CA lexiscan stress w michelle Today Z01.810 - Encounter for preprocedural cardiovascular examination Coding Level of Care Code Est Pt Level 4 (39702) Diagnoses Preoperative cardiovascular examination Z01.810 Aortic stenosis I35.0 CPT Codes EKG - CPT: [id number], Complete ([id number])
== END 2024-01-13 14:12 | disposition home or self-care (01) ==
PROVIDERS: PCP Internal Medicine; Visit Provider Internal Medicine Cardiovascular Disease
DX: I35.0 Nonrheumatic aortic (valve) stenosis (principal); Z01.810 Encounter for preprocedural cardiovascular examination; I49.1 Atrial premature depolarization; I49.3 Ventricular premature depolarization
CPT/HCPCS: 93010; 99214

== ENCOUNTER → 2024-01-13 13:11 | Outpatient (BNVA) | payer MEDICARE, MEDICAID, SELFPAY | PROVIDERS: PCP Internal Medicine; Visit Provider Internal Medicine Cardiovascular Disease | DX: Z01.810 Encounter for preprocedural cardiovascular examination (principal); I35.0 Nonrheumatic aortic (valve) stenosis | CPT/HCPCS: 93005; 99212 ==

== ENCOUNTER → 2024-02-22 08:41 | Outpatient (REF) | payer MEDICARE, MEDICAID, SELFPAY ==
--- NOTE | ~2024-02-22 | NM_ITS ---
Lexiscan Myocardial perfusion study Indication: Coronary artery disease Technique: The patient was brought in for a Lexiscan perfusion study on 02/22/2024 and was injected 0.4 mg of Lexiscan intravenously. Within a minute of this injection 25 mCi of sestamibi was given intravenously. Images were obtained using the SPECT gamma camera interlaced with the gating device. Images were obtained in supine position. Resting perfusion study was performed on 02/23/2024. Patient was administered 25 mCi of sestamibi intravenously at rest. Images were then obtained in supine position. Total DLP 69 mGy-cm. Images were processed with the software and compared side to side in short axis, horizontal long axis and vertical long axis views. Findings: Raw aquisition reviewed. The stress perfusion study showed no significant vascularity. Difficult to assess inferior wall as it is adjacent subdiaphragmatic tracer uptake. The gated study shows normal LV systolic function with calculated LVEF of 52%, but visually appears higher. LV cavity is normal in size. The gated study shows normal wall thickening and contraction of segments. Resting study shows no significant perfusion abnormality. Inferior wall assessment is suboptimal due to subdiaphragmatic tracer uptake. Gating at rest reveals normal wall motion with ejection fraction at 43%, but visually appears normal. The findings are consistent with no clearly was no fixed perfusion defects. Inferior wall assessment suboptimal due to adjacent tracer uptake. NM/NM michelle perf SPECT rest & str Impression: 1. Myocardial perfusion imaging study shows no definitive evidence of any ischemia or infarction but inferior wall not adequately assessed due to subdiaphragmatic tracer uptake. 2. LVEF is normal by visual evaluation. Gating not accurate. EKG component of the test reported separately. Electronically signed by: Arvin Olvera MD 02/24/2024 10:02 AM EDT
--- NOTE | 2024-02-22 08:46 | CA_ITS ---
Acquisition Time: 2024-02-22 09:56:42 Total Exercise Time: 00:02:00 Test Indications: Z01.810 Medications: SEE H Protocol: LEXISCAN Max HR: 093 BPM 67% of Pred: 138 BPM Max BP: 178/074 mmHG Max Work Load: 1.0 METS Pharmacological stress test with Lexiscan injection, while sitting and kicking her legs, without anginal symptoms, with isolated PACs, with normotensive response to injection, with nondiagnostic EKG for ischemia. In later recovery there were occassional junctional beats noted. She was treated with Amionphylline 75mg IVP to reverse Lexiscan. Nuclear images pending. Test reviewed with Dr Olvera. Referred By: Thad Nieves Overread By: ULISES MARTINEZ
== END ==
LOC: HO.CARD 08:41
PROVIDERS: PCP Internal Medicine; Visit Provider Internal Medicine Cardiovascular Disease
DX: Z01.810 Encounter for preprocedural cardiovascular examination (principal)
CPT/HCPCS: 78452; 93017; A9500; J0280; J2785

== ENCOUNTER → 2024-02-22 08:46 | Outpatient (BNV) | payer MEDICARE, MEDICAID, SELFPAY | PROVIDERS: PCP Internal Medicine; Visit Provider Nurse Practitioner Family | DX: I49.1 Atrial premature depolarization (principal) | CPT/HCPCS: 78452; 93016; 93018 ==

== ENCOUNTER 2024-05-10 10:54 | Outpatient (AMB) | payer MEDICARE, MEDICAID, SELFPAY ==
[2024-05-10 11:03] VITALS: BP 166/76; PULSE 52; O2SAT 98; BMI 24.8
--- NOTE | 2024-05-10 11:03 | MHC.OFFVIS ---
Vital Signs 05/10/24 11:03 Height 5 ft 1 in Weight 131 lb 6.328 oz BMI 24.8 BP 166/76 H Blood Pressure Location Rt brachial Position Sitting Pulse 52 Pulse Source Pulse Oximeter Pulse Oximetry (%) 98 Oxygen Delivery Method Room Air Intake Visit Reasons: 6 mth follow up History of SBO, constipation Intake Note: PRESCRIPTIONS LAST GENERATED sennosides 8.6 mg tablet?(Natural Senna Laxative)?17.2 mg (2 x 8.6 mg) PO BEDTIME 180 tabs 3RF Nava Hanna D 11/08/23 10:39 (Transmitted) Pt is still taking this medication without difficulty Relevant Flags or Indicators ? Requires Sanitary Engineering Teacher? Jeff Powell presents in office today for a scheduled 6 mos FUV. CC; No recent labs, diagnostics ? Relevant GI Sx as reported per pt? Abdominal Pain - RUQ; intermittently, ~ 2-3 days/week. Point tenderness. Pt states that this is a chronic sx. ? Bloating ? Hx of any recent surgeries? None Sanitary Engineering Teacher Required: Yes Sanitary Engineering Teacher Services: Sanitary Engineering Teacher Present Sanitary Engineering Teacher Name: [id number] Melani Information Interpreted: non-clinical & clinical Accompanied by: Family/Other Allergies No Known Allergies Allergy (Verified 05/10/24 11:03) HPI HPI 6 mth follow up History of SBO, constipation: Details: LAST VISIT: History of small bowel obstruction Abdominal pain Chronic idiopathic constipation Plan Continue taking senna every night. Increase fluid intake and activity to promote better bowel motility. No tenderness noted on PE. Continue avoiding dietary triggers in late night snacking. Patient will be seen in 6 months, sooner on as needed basis. She is agreeable to this plan and verbalizes understanding of instructions. She was given the opportunity to ask questions and all questions answered. ? Thank you for allowing me to participate in his care Medications Refilled sennosides (Natural Senna Laxative) 17.2 mg (2 x 8.6 mg) PO BEDTIME 180 tabs 3RF constipation K59.00 TODAY'S VISIT Patient is here today for follow-up. Patient reports that she has been doing better now that she take senna. However patient admits that she has has to take 3 tablets in order to all feel like she is moving her bowels well. Patient reports occasional abdominal pain just above umbilicus. Patient states that she feels like she has hernia and occasionally feels like cramping in that area. Patient denies any melena, hematochezia. Denies any nausea or vomiting. Denies any epigastric pain, dyspepsia, dysphagia or odynophagia. [facility] Medical History Aortic stenosis Thoracic aortic atherosclerosis Aortic regurgitation Diastolic dysfunction HTN (hypertension) Papillary fibroelastoma Surgical History Hx of colonoscopy Hx of cholecystectomy Hx of cardiac cath History of partial hysterectomy Family History Father No problems noted. Mother CAD (coronary artery disease) Social History Alcohol intake: never Patient Tobacco Use Status: Never used Tobacco Review of Systems Const Denies weight gain and Denies weight loss ENT Reports no additional complaints, Denies dysphagia and Denies odynophagia Card Reports no additional complaints Resp Reports no additional complaints GI Reports abdominal pain (Periumbilical), Denies belching, Denies melena, Denies bloating, Denies change in bowel habits, Reports constipation (Occasional), Denies dysphagia, Denies excessive flatus, Denies dyspepsia, Denies heartburn, Denies diarrhea, Denies loose stools, Denies nausea, Denies odynophagia and Denies vomiting Musc Reports no additional complaints Neuro Reports no additional complaints Psych Reports no additional complaints Endo Reports no additional complaints Physical Exam Vital Signs: Last Vital Signs Pulse 52 05/10/24 11:03 BP 166/76 H 05/10/24 11:03 Pulse Ox 98 05/10/24 11:03 Oxygen Delivery Method Room Air 05/10/24 11:03 BMI result Body Mass Index 24.8 Const General: healthy appearing, no acute distress and well developed Nutritional Appearance: well nourished Orientation/consciousness: patient oriented x3 Resp Effort & Inspection: normal respiratory effort, able to speak in complete sentences, no tracheal deviation and symmetric chest movement Auscultation: clear to auscultation bilaterally Cardio Rate: regular rate GI Inspection: Yes normal to inspection and No distended Palpation (GI): Soft to palpation, not firm, nontender and No hepatosplenomegaly present Auscultation: normal bowel sounds General: Yes no CVA tenderness Back/Spine/Pelvis Back: no CVA tenderness Skin General skin exam: elasticity normal, turgor normal and dry skin Neuro General: patient oriented x3 Psych Appearance: grossly normal Mental Status: mental status grossly normal Assessment & Plan Assessment & Plan (1) History of small bowel obstruction: Code(s): Z87.19 - Personal history of other diseases of the digestive system (2) Abdominal pain: Code(s): R10.9 - Unspecified abdominal pain Qualifiers: Abdominal location: upper abdomen, unspecified Qualified Code(s): R10.10 - Upper abdominal pain, unspecified (3) Chronic idiopathic constipation: Code(s): K59.04 - Chronic idiopathic constipation Plan Patient cleared by Cardiology. Normal nuclear stress test. Patient denies any chest pain or shortness of breath with or without activity. Will book her for colonoscopy for September. Patient will see me before the procedure to discuss the prep. Patient will change bowel regimen will start her on Dulcolax, however she will call our office if she will have trouble moving her bowels. Increase fluid intake and activity to promote better bowel motility. Both patient and her daughter are agreeable to plan of care and verbalizes understanding of instructions. She was given the opportunity to ask questions and all questions answered. Thank you for allowing me to participate in her care Medications: New bisacodyl (Dulcolax (bisacodyl)) 10 mg (2 x 5 mg) PO BEDTIME 180 tabs 4RF Discontinued sennosides (Natural Senna Laxative) Discontinued Reason: Doctor's Order 17.2 mg (2 x 8.6 mg) PO BEDTIME 180 tabs 3RF constipation K59.00 - Constipation, unspecified Coding Level of Care Code Est Pt Level 3 (32203) Diagnoses History of small bowel obstruction Z87.19 Pain of upper abdomen R10.10 Abdominal location: upper abdomen, unspecified Chronic idiopathic constipation K59.04 Time Spent (min) 25 Comment 15 minutes spent with patient and additional 10 minutes spent reviewing her records
== END 2024-05-10 11:49 | disposition home or self-care (01) ==
PROVIDERS: PCP Internal Medicine; Visit Provider Nurse Practitioner Family
DX: Z87.19 Personal history of other diseases of the digestive system (principal); R10.10 Upper abdominal pain, unspecified; K59.04 Chronic idiopathic constipation
CPT/HCPCS: 99213

== ENCOUNTER → 2024-05-10 10:54 | Outpatient (BNVA) | payer MEDICARE, MEDICAID, SELFPAY | PROVIDERS: PCP Internal Medicine; Visit Provider Nurse Practitioner Family | DX: K59.04 Chronic idiopathic constipation (principal); R10.10 Upper abdominal pain, unspecified; Z87.19 Personal history of other diseases of the digestive system | CPT/HCPCS: 99212 ==

== ENCOUNTER 2024-09-06 11:05 | Outpatient (AMB) | payer MEDICARE, MEDICAID, SELFPAY ==
[2024-09-06 11:09] VITALS: BP 158/76; PULSE 54; O2SAT 98; BMI 25.2
--- NOTE | 2024-09-06 11:09 | A.OFFVIS_ITS ---
Vital Signs 09/06/24 11:09 Height 5 ft 1 in Weight 133 lb 2.547 oz BMI 25.2 BP 158/76 H Blood Pressure Location Rt brachial Position Sitting Pulse 54 Pulse Source Pulse Oximeter Pulse Oximetry (%) 98 Oxygen Delivery Method Room Air Intake Visit Reasons: 4 month follow up Intake Note: ESTABLISHED PATIENT for abd pain + constipation mgmt w/ hx of SBO. Chief Complaint; Pt reports that she has been doing much better since last visit. No concerns as of this time per pt. Pt has stopped the dulcolax as they did not find it effective and they are once again taking senna x2 @ bedtime w/o difficulty. Jigger Crown Pouncing Machine Operator Required: Yes Jigger Crown Pouncing Machine Operator Services: Jigger Crown Pouncing Machine Operator Offered & Declined Jigger Crown Pouncing Machine Operator Name: Family Accompanied by: Family/Other Allergies No Known Allergies Allergy (Verified 09/06/24 11:09) HPI HPI 4 month follow up: Details: LAST VISIT: History of small bowel obstruction Abdominal pain Chronic idiopathic constipation Plan Patient cleared by Cardiology. Normal nuclear stress test. Patient denies any chest pain or shortness of breath with or without activity. Will book her for colonoscopy for September. Patient will see me before the procedure to discuss the prep. Patient will change bowel regimen will start her on Dulcolax, however she will call our office if she will have trouble moving her bowels. Increase fluid intake and activity to promote better bowel motility. Both patient and her daughter are agreeable to plan of care and verbalizes understanding of instructions. She was given the opportunity to ask questions and all questions answered. ? Thank you for allowing me to participate in her care Medications New bisacodyl (Dulcolax (bisacodyl)) 10 mg (2 x 5 mg) PO BEDTIME 180 tabs 4RF Discontinued sennosides (Natural Senna Laxative) Discontinued Reason: Doctor's Order 17.2 mg (2 x 8.6 mg) PO BEDTIME 180 tabs 3RF constipation K59.00 TODAY'S VISIT Patient is here today for follow-up. Patient is accompanied by her granddaughter. Patient reports that she has been feeling well. Patient had to switch to Senokot as [facility] was not working for her. No longer she is experiencing abdominal pain. Denies melena, hematochezia, unintentional weight loss or ribbon like stools. Patient denies dyspepsia, dysphagia or odynophagia. Patient denies any acid reflux, nausea or vomiting. Patient has good appetite. Patient denies any GI concerning symptoms today or in the past few months. [facility] Medical History Aortic stenosis Thoracic aortic atherosclerosis Aortic regurgitation Diastolic dysfunction HTN (hypertension) Papillary fibroelastoma Surgical History Hx of colonoscopy Hx of cholecystectomy Hx of cardiac cath History of partial hysterectomy Family History Father No problems noted. Mother CAD (coronary artery disease) Social History Alcohol intake: never Patient Tobacco Use Status: Never used Tobacco Review of Systems Const Denies weight gain and Denies weight loss ENT Reports no additional complaints, Denies dysphagia and Denies odynophagia Card Reports no additional complaints Resp Reports no additional complaints GI Denies abdominal pain, Denies belching, Denies melena, Denies bloating, Denies change in bowel habits, Denies dysphagia, Denies excessive flatus, Denies dyspepsia, Denies heartburn, Denies diarrhea, Denies loose stools, Denies nausea, Denies odynophagia and Denies vomiting Musc Reports no additional complaints Neuro Reports no additional complaints Psych Reports no additional complaints Endo Reports no additional complaints Physical Exam Vital Signs: Last Vital Signs Pulse 54 09/06/24 11:09 BP 158/76 H 09/06/24 11:09 Pulse Ox 98 09/06/24 11:09 Oxygen Delivery Method Room Air 09/06/24 11:09 BMI result Body Mass Index 25.2 Const General: healthy appearing, no acute distress and well developed Nutritional Appearance: well nourished Orientation/consciousness: patient oriented x3 Resp Effort & Inspection: normal respiratory effort, able to speak in complete sentences, no tracheal deviation and symmetric chest movement Auscultation: clear to auscultation bilaterally Cardio Rate: regular rate GI Inspection: Yes normal to inspection and No distended Palpation (GI): Soft to palpation, not firm, nontender and No hepatosplenomegaly present Auscultation: normal bowel sounds General: Yes no CVA tenderness Back/Spine/Pelvis Back: no CVA tenderness Skin General skin exam: elasticity normal, turgor normal and dry skin Neuro General: patient oriented x3 Psych Appearance: grossly normal Mental Status: mental status grossly normal Assessment & Plan Assessment & Plan (1) History of small bowel obstruction: Code(s): Z87.19 - Personal history of other diseases of the digestive system (2) Abdominal pain: Code(s): R10.9 - Unspecified abdominal pain Qualifiers: Abdominal location: generalized Qualified Code(s): R10.84 - Generalized abdominal pain (3) Chronic idiopathic constipation: Code(s): K59.04 - Chronic idiopathic constipation Plan Patient no longer has abdominal pain or discomfort. Reports that she is moving her bowels with Senokot. Continue senna, increase fluid intake and activity to promote better bowel motility. They also take fiber daily and probiotics. Follow-up in 6 months, sooner on as needed basis. Both patient and her granddaughter are agreeable to plan of care verbalize understanding of instructions. They were given the opportunity to ask questions and all questions answered. Thank you for allowing me to participate in her care Medications: New sennosides (Natural Senna Laxative) 17.2 mg (2 x 8.6 mg) PO BEDTIME 180 tabs 3RF Coding Level of Care Code Est Pt Level 3 (81532) Diagnoses History of small bowel obstruction Z87.19 Generalized abdominal pain R10.84 Abdominal location: generalized Chronic idiopathic constipation K59.04 Time Spent (min) 25 Comment 15 minutes spent with patient and additional 10 minutes spent reviewing her records
--- OUTSIDE RECORDS SUMMARY | 2024-09-06 13:23 | XMS_ITS | Clinical Summary ---
Author Organization [employer] Address [address] [place] [address] [address] [place] [address] Care Team Providers Care Application Packaging Consultant Name Role Phone Juan Alberto Davison MD Primary Care Provider [phone] Allergies Active Allergy Reactions Criticality Noted Date Comments Iodine Rash Low 06/29/2017 Medications * This document contains information received from the source organization and may not represent a complete record from that organization. tiotropium (Spiriva HandiHaler) 18 MCG inhalation capsuleIndicati ons:Simple chronic bronchitis (CMS/HCC) Place 1 capsule (18 mcg) into inhaler and inhale in the morning. 30 capsule 11 2 Active Acetaminophen Extra Strength 500 MG tablet Take 2 tablets by mouth every 12 (twelve) hours if needed. 2 Active amLODIPine (Norvasc) 5 MG tablet Take 1 table by mouth in the morning and evening 3 Active Blood Pressure Monitoring (Omron 3 Series BP Monitor) device Check blood pressure on arm as directed 2 Active Symbicort 80-4.5 MCG/ACT inhaler Inhale 2 puffs in the morning and evening, rinse mouth after use 3 Active omeprazole (PriLOSEC) [address] capsuleIndicati ons:Epigastric pain TAKE ONE CAPSULE BY MOUTH EVERY MORNING 90 capsule 1 3 Active Additional Information Patient not taking.Reported on 03/22/2023 Ventolin HFA 108 (90 Base) MCG/ACT inhaler INHALE 1 PUFF EVERY 4 HOURS NEEDED FOR WHEEZING 3 Active Aspirin Adult Low Strength 81 MG EC tablet TAKE ONE TABLET EVERY NIGHT AT BEDTIME 30 tablet 5 4 Active atorvastatin (Lipitor) 20 MG tablet TAKE ONE TABLET EVERY NIGHT AT BEDTIME 30 tablet 5 4 Active Active Problems Problem Noted Date Diagnosed Date 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 Patient will benefit from OP therapy with a female Upper Sorbian speaking counselor in [place]. At this time Sherry Matthews meets criteria for Visit Diagnoses: Problem List Items Addressed This Visit Other Prolonged grief disorder Patient ready to address current needs Yes Strengths include supportive family PLAN: 1. Follow up with [facility]: Not recommended for follow-up 2. Patient goal is to engage in OP therapy for prolonged grief disorder 3. Behavioral Recommendations a. Incorporate memorials into holidays and anniversaries (ie favorite food or activity) b. Engage in OP therapy Epigastric pain 07/09/2022 Assessment & Plan (07/09/2022 4:39 PM EST): Concerned medication could worsening obstruction but symptomatic, recommended continue her PPI, rtc if no improvement Constipation 07/09/2022 Assessment & Plan (07/09/2022 4:40 PM EST): Will send trial of lori and rec f/u PCP Intestinal obstruction 07/09/2022 Assessment & Plan (07/09/2022 4:41 PM EST): Recent for hospitalization, reports improvement of pain. She was treated medically. Will refer to general surgery for followup Cough 07/09/2022 Assessment & Plan (07/09/2022 4:40 PM EST): Likely 2/2 COPD, rapid COVID negative, normal breath sounds but some chest tightness, will provide steroid and guaifenesin for cough. Hold codeine given recent SBO. Papillary fibroelastoma 09/29/2017 Elevated alkaline phosphatase level 08/13/2017 Chronic obstructive lung disease 01/01/2017 Coronary artery disease invo lving [place] coronary artery of [place] heart without angina pectoris 01/01/2017 Essential hypertension 01/01/2017 Hyperlipidemia 01/01/2017 Peripheral vascular disease 01/01/2017 Encounters Date Type Department Care Team Description 09/01/2024 Population Health Risk Score [facility] () Department [address] [id number] Provider, Population Health Generic 07/24/2024 Telephone [facility] [address] [place] [address] Juan Alberto Davison MD 06/27/2024 Patient Outreach [facility] [address] [place] [address] Juan Alberto Davison MD Medicare Annual Wellness Visit Initial (AWV scheduled) from Last 3 Months Immunizations Name Administration Dates Next Due Influenza High-dose Quadriva lent Preservative Free 01/24/2023,03/05/2022,02/22/2021 Influenza Quadrivalent Adjuvanted 03/11/2020 Influenza injectable quadriv alent preservative free 03/23/2017 Influenza, High Dose Seasona l, Preservative Free 03/24/2024,03/15/2019,03/10/2018 Influenza, IIV3, injectable 03/23/2017 Pfizer Covid-19 Vaccine 12+ 03/26/2021,,07/31/2020 Pneumococcal Conjugate PCV 13 08/11/2017 Pneumococcal Polysaccharide PPSV23 03/15/2019 Tdap 03/15/2019 Zoster, Recombinant 02/05/2020,07/04/2019 Zoster, live 01/01/2017 Social History Tobacco Use Types Packs/Day Years Used Date Smoking Tobacco: Never Passive Smoke Exposure: Never Smokeless Tobacco: Never Tobacco Cessation:Counseling Given: Not Answered Alcohol Use Standard Drinks/Week Comments Never 0 (1 standard drink = 0.6 oz pur e alcohol) Depression Answer Date Recorded Patient Health Questionnaire-9 Score 12 11/12/2022 Housing Stability Answer Date Recorded What is your housing situation today? I have mary stubbs 06/27/[address] you li ve. Do you have problems with any of the following? None of the above 06/27/2024 Food Insecurity Answer Date Recorded Within the past 12 months, y ou worried that your food would run out before you got money to buy more: Never True 06/27/2024 Within the past 12 months,th e food you bought just didn't last and you didn't have enough money to get more: Never True 12/2024 Transportation Answer Date Recorded In the past 12 months, has l ack of transportation kept you from medical appts, meetings, work or from getting things needed for daily living? No 06/27/2024 Utilities Answer Date Recorded In the past 12 months, has t he electric, gas, oil or water company threatened to shut off services in your home? No 06/27/2024 Depression Answer Date Recorded Patient Health Questionnaire-2 Score 3 11/12/2022 Internet Access Answer Date Recorded Internet Access Q1 Yes 06/27/2024 Internet Access Q2 Not on file 06/27/2024 Comments Unknown Sex and Gender Information Value Date Recorded Sex Assigned at Female 04/20/2022 10:31 AM EDT Legal Sex Female 10:31 AM EDT Gender Identity Female 04/20/2022 10:31 AM EDT Sexual Orientation Straight 04/20/2022 10 :31 AM EDT Last Filed Vital Signs Vital Sign Reading Time Taken Comments Blood Pressure 145/72 09/07/2023 9:20 AM EDT Pulse 52 09/07/2023 9:20 AM EDT Temperature 36.4 ??C (97.5 ??F) 09/07/2023 9:20 AM ED T Respiratory Rate 18 09/07/2023 9:20 AM EDT Oxygen Saturation 98% 09/07/2023 9:20 AM EDT Inhaled Oxygen Concentration - - Weight 57.2 kg (126 lb) 09/07/2023 9:20 AM EDT Height 149.9 cm (4' 11 ) 09/07/2023 9:20 AM EDT Body Mass Index 25.45 09/07/2023 9:20 AM EDT Plan of Treatment Health Maintenance Due Date Last Done Comments Lipid Panel 1941 Alcohol/Substance Use Screening 1953 RSV Patients and Patients Aged 60 years or older (1 - 1-dose 75+ series) 2016 Depression Monitoring (PHQ-9) 05/15/2023 11/12/2022, 11/12/2022 Depression Screening 11/13/2023 11/12/2022, 11/13/19 23 COVID-19 Vaccine ( season) 2024 01/10/2022, 03/26/2021, 08/21/2020, Additional history exists Tobacco Screening 09/06/2024 09/07/2023 SDOH Screening 06/27/2025 06/27/2024 DTaP/Tdap/Td Vaccines (2 - Td or Tdap) 03/15/2029 03/15/2019 Pneumococcal Vaccine: 50+ Years Completed 03/15/2019, 08/11/2017 Zoster Vaccines Completed 02/05/2020, 06/21, 01/01/2017 Influenza Vaccine Completed 03/24/2024, , 03/05/2022, Additional history exists HIB Vaccines Aged Out No longer eligi ble based on patient's age to complete this topic HPV Vaccines Aged Out No longer eligi ble based on patient's age to complete this topic Hepatitis A Vaccines Aged Out No long er eligible based on patient's age to complete this topic Hepatitis B Vaccines Aged Out No long er eligible based on patient's age to complete this topic IPV Vaccines Aged Out No longer eligi ble based on patient's age to complete this topic Meningococcal Vaccine Aged Out No yazmin ellis eligible based on patient's age to complete this topic RSV under 20 months Aged Out No longe r eligible based on patient's age to complete this topic Rotavirus Vaccines Aged Out No longer eligible based on patient's age to complete this topic Insurance MEDICARE [facility] STANDARD Care Teams Application Packaging Consultant Relationship Specialty Start Date End Date Juan Alberto Davison MD [address] [place] [id number] PCP - General Internal Medicine 01/01/17 [facility] Hoop Flaring Machine Operator Helper Cardiology 09/07/23
--- OUTSIDE RECORDS SUMMARY | 2024-09-06 13:23 | XMS_ITS | Encounter Summary ---
Author Organization [employer] Address [address] [facility] [place], [place] [address] Care Team Providers Care Learning Analyst Name Role Phone Juan Alberto Davison MD Primary Care Provider [phone] Reason for Visit * Reason Comments Med Refill Encounter Details Date Type Department Care Team ([facility] st Contact Info) Description 05/10/2023 Refill [facility] [address] [place] [address] Juan Alberto Davison MD [address] [place] [address] Constipation, unspecified constipation type Social History Tobacco Use Types Packs/Day Years Used Date Smoking Tobacco: Never Passive Smoke Exposure: Never Smokeless Tobacco: Never Alcohol Use Standard Drinks/Week Comments Never 0 (1 standard drink = 0.6 oz pur e alcohol) Depression Answer Date Recorded Patient Health Questionnaire-9 Score 12 11/12/2022 Housing Stability Answer Date Recorded What is your housing situation today? I have mary stubbs 04/06/[address] you li ve. Do you have problems with any of the following? None of the above 04/06/2023 Food Insecurity Answer Date Recorded Within the past 12 months, y ou worried that your food would run out before you got money to buy more: Never True 04/06/2023 Within the past 12 months,th e food you bought just didn't last and you didn't have enough money to get more: Never True Transportation Answer Date Recorded In the past 12 months, has l ack of transportation kept you from medical appts, meetings, work or from getting things needed for daily living? No 04/06/2023 Utilities Answer Date Recorded In the past 12 months, has t he electric, gas, oil or water company threatened to shut off services in your home? No 04/06/2023 Depression Answer Date Recorded Patient Health Questionnaire-2 Score 3 11/12/2022 Comments Unknown Sex and Gender Information Value Date Recorded Sex Assigned at Female 04/20/2022 10:31 AM EDT Legal Sex Female 10:31 AM EDT Gender Identity Female 04/20/2022 10:31 AM EDT Sexual Orientation Straight 04/20/2022 10 :31 AM EDT documented as of this encounter Plan of Treatment Not on file documented as of this encounter Visit Diagnoses Diagnosis Constipation, unspecified constipation type documented in this encounter Additional Health Concerns Assessment Noted Time PHQ-9 Depression Total Score: 12 023 9:22 AM EDT documented as of this encounter Care Teams Learning Analyst Relationship Specialty Start Date End Date Juan Alberto Davison MD [address] [place] [id number] PCP - General Internal Medicine 01/01/17 [facility] Grade Tamper Cardiology 09/07/23 documented as of this encounter
--- OUTSIDE RECORDS SUMMARY | 2024-09-06 13:23 | XMS_ITS | Encounter Summary ---
Author Organization [employer] [facility] Address [address] [place] [address] [address] [place] [address] Care Team Providers Care Hardwood Floor Installation Helper Name Role Phone Juan Alberto Davison MD Primary Care Provider [phone] Encounter Details Date Type Department Care Team (Latest Contact Info) Description 10/26/2018 [facility] CONVERSIONS Dental, Provider, DDS Social History Tobacco Use Types Packs/Day Years Used Date Smoking Tobacco: Never Assessed Comments Unknown Sex and Gender Information Value Date Recorded Sex Assigned at Female 04/20/2022 10:31 AM EDT Legal Sex Female 10:31 AM EDT Gender Identity Female 04/20/2022 10:31 AM EDT Sexual Orientation Straight 04/20/2022 10 :31 AM EDT documented as of this encounter Plan of Treatment Not on file documented as of this encounter Visit Diagnoses Not on filedocumented in this encounter Care Teams Hardwood Floor Installation Helper Relationship Specialty Start Date End Date Juan Alberto Davison MD [address] [place] [id number] PCP - General Internal Medicine 01/01/17 [facility] Chief Hospital Administrator Cardiology 09/07/23 documented as of this encounter
--- OUTSIDE RECORDS SUMMARY | 2024-09-06 13:23 | XMS_ITS | Encounter Summary ---
Author Organization [employer] Address [address] [place] [address] [address], [place] [address] Care Team Providers Care Pump Rebuilder Name Role Phone Juan Alberto Daivson MD Primary Care Provider [phone] Reason for Visit * Reason Comments Med Refill Encounter Details Date Type Department Care Team ([facility] st Contact Info) Description 11/25/2022 Refill [facility] [address] [place] [address] Juan Alberto Davison MD [address] [place] [address] Social History Tobacco Use Types Packs/Day Years Used Date Smoking Tobacco: Never Passive Smoke Exposure: Never Smokeless Tobacco: Never Alcohol Use Standard Drinks/Week Comments Never 0 (1 standard drink = 0.6 oz pur e alcohol) Depression Answer Date Recorded Patient Health Questionnaire-9 Score 12 11/12/2022 Depression Answer Date Recorded Patient Health Questionnaire-2 Score 3 11/12/2022 Comments Unknown Sex and Gender Information Value Date Recorded Sex Assigned at Female 04/20/2022 10:31 AM EDT Legal Sex Female 10:31 AM EDT Gender Identity Female 04/20/2022 10:31 AM EDT Sexual Orientation Straight 04/20/2022 10 :31 AM EDT COVID-19 Exposure Response Date Recorded In the last 10 days, have yo u been in contact with someone who was confirmed or suspected to have Coronavirus/COVID-19? No / Unsure 11/12/2022 8:51 AM EDT documented as of this encounter Plan of Treatment Not on file documented as of this encounter Visit Diagnoses Not on filedocumented in this encounter Additional Health Concerns Assessment Noted Time PHQ-9 Depression Total Score: 12 023 9:22 AM EDT documented as of this encounter Care Teams Pump Rebuilder Relationship Specialty Start Date End Date Juan Alberto Davison MD [address] [place] [id number] PCP - General Internal Medicine 01/01/17 [facility] Controlled Area Checker Cardiology 09/07/23 documented as of this encounter
--- OUTSIDE RECORDS SUMMARY | 2024-09-06 13:23 | XMS_ITS | Encounter Summary ---
Author Organization [employer] [facility] Address [address] [place] [address] [place] [address] Care Team Providers Care Elementary Classroom Teacher Name Role Phone Juan Alberto Davison MD Primary Care Provider [phone] Encounter Details Date Type Department Care Team (Latest Contact Info) Description 07/04/2021 Abstract [facility] CONVERSIONS Dental, Provider, DDS Social [...] on filedocumented in this encounter Care Teams Elementary Classroom Teacher Relationship Specialty Start Date End Date Juan Alberto Davison MD [address] [place] [id number] PCP - General Internal Medicine 01/01/17 [facility] Dress Shoe Inspector Cardiology 09/07/23 documented as of this encounter
--- OUTSIDE RECORDS SUMMARY | 2024-09-06 13:23 | XMS_ITS | Encounter Summary ---
Author Organization [employer] Address [address] [facility] [address] [place] [address] Care Team Providers Care Welder Fitter Arc Name Role Phone Juan Alberto Davison MD Primary Care Provider [phone] Encounter Details Date Type Department Care Team ([facility] st Contact Info) Description 09/01/2024 Population Health Risk Score [facility] () Department [address] [place] [id number] Provider, Population Health Generic Social History Tobacco Use Types Packs/Day Years [...] documented as of this encounter Care Teams Welder Fitter Arc Relationship Specialty Start Date End Date Juan Alberto Davison MD [address] [place] [id number] PCP - General Internal Medicine 01/01/17 [facility] Coding Support Specialist Cardiology 09/07/23 documented as of this encounter
== END 2024-09-06 11:32 | disposition home or self-care (01) ==
LOC: HO.HGI 11:05
PROVIDERS: PCP Internal Medicine; Visit Provider Nurse Practitioner Family
DX: Z87.19 Personal history of other diseases of the digestive system (principal); R10.84 Generalized abdominal pain; K59.04 Chronic idiopathic constipation
CPT/HCPCS: 99213

== ENCOUNTER → 2024-09-06 11:05 | Outpatient (BNVA) | payer MEDICARE, MEDICAID, SELFPAY | PROVIDERS: PCP Internal Medicine; Visit Provider Nurse Practitioner Family | DX: K59.04 Chronic idiopathic constipation (principal); R10.84 Generalized abdominal pain; Z87.19 Personal history of other diseases of the digestive system | CPT/HCPCS: 99212 ==

== ENCOUNTER 2024-11-20 11:41 | Outpatient (REF) | payer MEDICARE, MEDICAID, SELFPAY ==
--- OUTSIDE RECORDS SUMMARY | 2024-11-20 12:57 | XMS_ITS | Encounter Summary ---
Author Organization [facility] Address [address] [place] [address] [address] [place] [address] Care Team Providers Care Instructor Warper Name Role Phone Juan lAberto Davison MD Primary Care Provider [phone]- [phone] Encounter Details Date Type Department Care Team (Latest Contact Info) Description 07/04/2021 Abstract [facility] CONVERSIONS Dental, Provider, DDS Social History Tobacco Use Types Packs/Day Years Used Date Smoking Tobacco: Never Assessed Comments Unknown Sex and Gender Information Value Date Recorded Sex Assigned at Female 04/20/2022 10:31 AM EDT Legal Sex Female 10:31 AM EDT Gender Identity Female 04/20/2022 10:31 AM EDT Sexual Orientation Straight 04/20/2022 10 :31 AM EDT documented as of this encounter Plan of Treatment Upcoming Encounters Date Type Department Care Team (Late st Contact Info) Description 02/15/2025 2:30 PM EDT Office Visit [facility] MED & PEDS [address] [place] [address] Juan Alberto Davison MD [address] [place] [address] documented as of this encounter Visit Diagnoses Not on filedocumented in this encounter Care Teams Instructor Warper Relationship Specialty Start Date End Date Juan Alberto Davison MD [address] [place] [address] PCP - General Internal Medicine 01/01/17 [facility] Field Artillery Targeting Technician Cardiology 09/07/23 documented as of this encounter
[2024-11-20 14:19] LABS: MANUAL DIFF FLAG NO
[2024-11-20 14:26] LABS: Basophils Percent Auto 0.7 % (0-2); Eosinophils Absolute Auto 0.1 X10*3/uL (0.0-0.4); Eosinophils Percent Auto 2.4 % (0-4); Hematocrit 39.6 % (37.0-47.0); Imm Gran Abs Auto 0.01 X10*3/uL (0.00-0.03); Imm Gran Pct Auto 0.2 % (0.0-0.4); Lymphocytes Absolute Auto 1.5 X10*3/uL (1.2-4.9); Lymphocytes Percent Auto 32.5 % (20-40); Mean Corpuscular HGB Conc 32.8 g/dl (31.0-35.0); Mean Corpuscular Hemoglobin 30.5 pg (27.0-33.0); Mean Platelet Volume 10.9 fL (9.4-12.3); Monocytes Absolute Auto 0.4 X10*3/uL (0.1-1.2); Monocytes Percent Auto 8.4 % (2-11); Neutrophils Absolute Auto 2.5 x10*3/uL (2.0-8.3); Neutrophils Percent Auto 55.8 % (45-73); Platelet Count 223 X10*3/uL (160-400); Red Blood Count 4.26 X10*6/uL (4.20-5.50); Red Cell Distribution Width 13.2 % (11.0-16.0); White Blood Count 4.6 X10*3/uL (4.8-10.8)
[2024-11-20 14:51] LABS: Alanine Aminotransferase 13 U/L (0-31); Albumin Level 4.2 g/dL (3.5-5.0); Alkaline Phosphatase 110 U/L (39-117); Anion Gap 11 (12-20); Aspartate Amino Transferase 33 U/L (5-31); Bilirubin Direct 0.2 mg/dL (0.0-0.5); Bilirubin Total 0.4 mg/dL (0.0-1.0); Blood Urea Nitrogen 24 mg/dL (9-16); Calcium 10.1 mg/dL (8.4-10.2); Carbon Dioxide 27 mmol/L (22-29); Chloride 108 mmol/L (96-108); Estimated Glomerular Filt Rate 60; Glucose Random 89 mg/dL (60-115); Sodium 142 mmol/L (135-145); Total Protein 7.3 g/dL (6.5-8.0)
== END 2024-11-20 11:42 | disposition home or self-care (01) ==
LOC: HO.CHCLDS 11:41
PROVIDERS: Visit Provider Student in an Organized Health Care Education/Training Program
DX: R42 Dizziness and giddiness (principal)
CPT/HCPCS: 36415; 80048; 80076; 85025

== ENCOUNTER → 2024-12-25 09:16 | Outpatient (REF) | payer MEDICARE, MEDICAID, SELFPAY ==
--- NOTE | 2024-12-25 09:19 | CA_ITS ---
Transthoracic Echocardiogram Patient (Last, First, Middle): Sherry Winter, Gender: Female Date of : 1940 Age: 84 Procedure Date: 12/25/2024 Procedure Type: Transthoracic Echocardiogram Location: OP Height: 152.4 cm Weight: 59.42 kg BSA: 1.56 m2 Heart Rate: 56 bpm BP: 185 / 90 mmHg Optician Apprentice Dispensing: JERAD Referring MD: Thad Nieves MD Farmworker Fruit: Thad Nieves MD Symptoms: I35.0 - Nonrheumatic aortic (valve) stenosis Study Quality: Adequate ECG Rhythm: Bradycardia Conclusions: - 1. Normal LV ejection fraction of 65-70% with impaired relaxation filling pattern 2. Moderately dilated left atrium 3. Moderate aortic stenosis and mild aortic regurgitation 4. Wedp-nr-zegwkuyu elevation of right ventricular systolic pressure 5. No gross pericardial effusion Findings Left Ventricle Normal left ventricular size, thickness, and systolic function. The visually estimated ejection fraction is between 65-70%. Spectral Doppler is indicative of an impaired relaxation filling pattern. E/E prime ratio is between 8 and 15 consistent with indeterminate filling pressures. Right Ventricle Normal right ventricular cavity size and systolic function. Atria The left atrium is moderately dilated. There is no evidence of interatrial shunt. The right atrium is likely dilated. Aortic Valve There is moderate calcification of the aortic valve. There is moderate aortic valve stenosis. The peak aortic gradient is 46 mmHg.The mean gradient is 25 mmHg. There is mild aortic valve regurgitation. measured dimensionless index is 0.33, more consistent with moderate aortic stenosis Mitral Valve There is mild anterior and moderate posterior mitral leaflet thickening. There is trace mitral valve regurgitation. There is no mitral valve stenosis. Pulmonic Valve The pulmonic valve is likely normal. Tricuspid Valve Normal tricuspid valve structure. There is mild tricuspid valve regurgitation. Normal right atrial pressure. Mild to moderate pulmonary hypertension is present. Great Vessels The pulmonary artery was not well visualized. There is no dilatation of the ascending aorta measuring 3.50 cm. Small plaque is seen in the sino tubular ridge. Venous The inferior vena cava is normal in size and collapses greater than 50% with inspiration. Pericardium/Pleural There is no evidence of pericardial effusion. Prior Study Comparison Changes noted compared to prior study dated: 09/22/2022. mild progression of aortic valve stenosis Measurements 2D Linear Measurements IVSd: 0.83 0.6-0.9/0.6-1.0 cm LVIDd: 4.33 3.9-5.3/4.2-5.9 cm LVIDd Index: 2.78 2.4-3.2/2.2-3.1 cm/m2 LVIDs: 2.20 2.0-3.6 cm LVPWd: 1.06 0.7-1.1 cm LA Diam: 4.20 2.7-3.8/3.0-4.0 cm LAIDs Index: 2.69 1.5-2.3 cm/m2 LV Mass: 165.48 67-162/88-224 g LV Mass Index: 106.07 43-95/49-115 g/m2 LVOT Diam: 1.80 3.0+(-)1.3 cm 2D Systolic Function EF 4C: 70.50 >55% EF 2C: 65.80 >55% EF BiP: 68.10 >55% Mitral Valve MV VTI: 0.33 MV Pk Neftali: 0.97 MV Mn Neftali: 0.50 MV Pk Grad: 4.00 MV Mn Grad: 1.00 MV Pk E: 0.75 MV PK A: 0.85 MV Decel Time: 185.00 E/A: 0.90 E'Lateral: 6.53 E'Medial: 3.92 E/E' Med: 19.10 E/E' Lat: 11.50 PHT: 54.00 MVA PHT: 4.07 MVA Continuity: 2.39 Decel Gray: 4.04 MR Vol - PW Dopp: 9.40 MR VTI: 2.35 MR ERO: 4.00 MR Alias Neftali: 0.39 MR RAD: 0.30 Aortic Valve AoV Pk Neftali: 3.38 AoV Mn Neftali: 2.37 AoV VTI: 0.89 AoV Pk Grad: 46.00 Aov Mn Grad: 25.00 ADA Cont.VTI: 0.90 AI Pk Neftali: 5.36 AI VTI: 3.83 AI Gray: 2.55 AI Alias Neftali: 0.39 AI RV - PISA: 15.00 ERO - PISA: 4.00 LVOT LVOT Pk Neftali: 1.20 LVOT Mn Neftali: 0.77 LVOT VTI: 0.31 LVOT Pk Grad: 6.00 LVOT Mn Grad: 3.00 LVOT Diam: 1.80 LVOT Area: 2.54 Diastolic Function MV Pk E: 0.75 MV Pk A: 0.85 E/A: 0.90 E'Medial: 3.92 E/E' Med: 19.10 E' Laterial: 6.53 E/E' Lat: 11.50 Right Ventricle TAPSE (mm): 17.50 TVS' Neftali: 10.00 Tricuspid Valve TR Pk Neftali: 3.24 TR Pk Grad: 42.00 RA Press: 3.00 RVSP: 45.00 Great Vessels Aorta Sinus of Valsalva: 3.20 2.0-3.5 cm Ao Asc: 3.50 2.1-3.4 cm Ao Arch: 3.00 Pulmonary Valve PV Pk Neftali: 1.14 Peak PV Grad: 5.00 Updated in Other Vendor System with Status of Final Thad Nieves MD electronically signed on 12/25/2024 12:32:11 PM with status of Final
--- OUTSIDE RECORDS SUMMARY | 2024-12-25 09:44 | XMS_ITS | Clinical Summary ---
Author Organization [facility] Address [address] [place] [address] Care Team Providers Care Real Estate Administrative Assistant Name Role Phone Juan Alberto Davison MD Primary Care Provider [phone] Social History Tobacco Use Types Packs/Day Years Used Date Smoking Tobacco: Never Assessed Comments Unknown Sex and Gender Information Value Date Recorded Sex Assigned at Not on file Legal Sex Female 9:14 AM EST Gender Identity Not on file Sexual Orientation Not on file Last Filed Vital Signs Vital Sign Reading Time Taken Comments Blood Pressure 148/68 11/30/2023 11:09 AM EDT R Arm Pulse - - Temperature - - Respiratory Rate - - Oxygen Saturation - - Inhaled Oxygen Concentration - - Weight 59 kg (130 lb) 11/30/2023 11:09 AM EDT Height 152.4 cm (5') 11/30/2023 11:09 AM EDT Body Mass Index 25.39 11/30/2023 11:09 AM EDT Plan of Treatment Health Maintenance Due Date Last Done Comments DTaP,Tdap,and Td Vaccines (1 - Tdap) 1960 Pneumococcal Vaccine: 50+ Ye ars (1 of 1 - PCV) 1991 Zoster Vaccines (1 of 2) 1991 RSV Immunization Adult Patie nts (1 - 1-dose 75+ series) 2016 Cholesterol Screening (Lipid Panel) 05/24/2022 Depression Screening 05/24/2022 Falls Risk Assessment 05/24/2022 Osteoporosis Screening (Bone Density Screening) 05/24/2022 Social Influencers of Health Screening 05/24/2022 COVID-19 Vaccine ( - 2023-2 5 season) 2024 Influenza Vaccine (#1) 2025 HIB Vaccines Aged Out No longer eligi [...] on patient's age to complete this topic MMR Vaccines Aged Out No longer eligi ble based on patient's age to complete this topic Meningococcal ACWY Vaccine Aged Out N o longer eligible based on patient's age to complete this topic Meningococcal B Vaccine Aged Out No l onger eligible based on patient's age to complete this topic RSV Immunization Patients Un neil 20 months Aged Out No longer eligible b ased on patient's age to complete this topic Varicella Vaccines Aged Out No longer eligible based on patient's age to complete this topic Care Teams Real Estate Administrative Assistant Relationship Specialty Start Date End Date Juan Alberto Davison MD [address] [place] [address] PCP - General 07/07/22
--- OUTSIDE RECORDS SUMMARY | 2024-12-25 09:44 | XMS_ITS | Encounter Summary ---
Author Organization [facility] Address [address] [place] [address] [address] [address] Care Team Providers Care Video Game Maker Name Role Phone Juan Alberto Davison MD Primary Care Provider [phone]- [phone] Encounter Details Date Type Department Care Team (Latest Contact Info) Description 07/04/2021 Abstract [facility] CONVERSIONS Dental, Provider, DDS Social History [...] Description 02/15/2025 2:30 PM EDT Office Visit [facility] CHC MED & PEDS [address] [place] [address] Juan Alberto Davison MD [address] [place] [address] documented as of this encounter Visit Diagnoses Not on filedocumented in this encounter Care Teams Video Game Maker Relationship Specialty Start Date End Date Juan Alberto Davison MD [address] [place] [address] PCP - General Internal Medicine 01/01/17 [facility] Jack Of All Trades Cardiology 09/07/23 documented as of this encounter
== END ==
LOC: HO.CARD 09:16
PROVIDERS: Visit Provider Internal Medicine Cardiovascular Disease
DX: I35.0 Nonrheumatic aortic (valve) stenosis (principal)
CPT/HCPCS: 93306

== ENCOUNTER → 2024-12-25 09:19 | Outpatient (BNV) | payer MEDICARE, MEDICAID, SELFPAY | PROVIDERS: Visit Provider Internal Medicine Cardiovascular Disease | DX: I35.2 Nonrheumatic aortic (valve) stenosis with insufficiency (principal); I35.8 Other nonrheumatic aortic valve disorders; I36.1 Nonrheumatic tricuspid (valve) insufficiency; I51.7 Cardiomegaly | CPT/HCPCS: 93306 ==

== ENCOUNTER 2025-01-10 10:25 | Outpatient (AMB) | payer MEDICARE, MEDICAID, SELFPAY ==
[2025-01-10 10:28] VITALS: BP 150/86; PULSE 52; BMI 25.0
--- NOTE | 2025-01-10 10:28 | MHC.OFFVIS ---
Vital Signs 01/10/25 10:28 Height 5 ft 1 in Weight 132 lb 4.438 oz BMI 25.0 BP 150/86 H Blood Pressure Location Lt brachial Position Sitting Pulse 52 Intake Visit Reasons: 1 yr follow up Intake Note: 1 year follow-up with ekg c/o fatigue and weakness Dye Colorist Formulator Required: Yes Dye Colorist Formulator Services: Dye Colorist Formulator Present Dye Colorist Formulator Name: alvarez Martinez Allergies No Known Allergies Allergy (Verified 09/06/24 11:09) HPI Comments Details: Sherry comes for follow-up, accompanied by her daughter. History was obtained with help of aerial photograph interpreter. Patient mostly sedentary as per the daughter does not try to exercise much. She says she as a result gets more short of breath and fatigue when she tries to exercise. She denies any orthopnea, PND, leg edema. Echocardiogram shows moderate aortic stenosis with mild aortic regurgitation with gahg-vz-xamcjjie elevation right ventricular systolic pressure. There was no suggestion of increased filling pressures. Patient has no leg edema. Takes all her medications. No lightheadedness, syncope. No prolonged palpitation irregular heartbeat. No exertional chest pain. [facility] Medical History Aortic stenosis Thoracic aortic atherosclerosis Aortic regurgitation Diastolic dysfunction HTN (hypertension) Papillary fibroelastoma Surgical History Hx of colonoscopy Hx of cholecystectomy Hx of cardiac cath History of partial hysterectomy Family History Father No problems noted. Mother CAD (coronary artery disease) Social History Alcohol intake: never Patient Tobacco Use Status: Never used Tobacco Review of Systems Const Denies chills, Denies fatigue, Denies fever(s), Denies frequent falls, Denies weakness, Denies weight gain and Denies weight loss ENT Denies dizziness Card Denies chest pain, Denies leg edema, Denies lightheadedness, Denies palpitations, Denies dyspnea, Denies dyspnea on exertion, Denies orthopnea and Denies other (loss of consciousness) Resp Denies cough, Denies dyspnea and Denies dyspnea on exertion GI Denies hematochezia and Denies change in stool character Musc Denies abnormal gait, Denies muscle weakness, Denies numbness, Denies radiating pain into limb and Denies tingling Neuro Denies abnormal gait, Denies dizziness, Denies frequent falls, Denies numbness, Denies tingling and Denies weakness Endo Denies fatigue and Denies palpitations Physical Exam Vital Signs: Last Vital Signs Pulse 52 01/10/25 10:28 BP 150/86 H 01/10/25 10:28 BMI result Body Mass Index 25.0 Const General: cooperative, comfortable, no acute distress, alert and awake Nutritional Appearance: overweight Orientation/consciousness: patient oriented x3 Limitations: no limitations Neck Neck: Yes trachea midline, Yes supple and Yes no JVD Chest Chest palpation & inspection: normal inspection of the chest and other (Tenderness at the site of keloid in the mid sternotomy site.) Resp Effort & Inspection: normal respiratory effort Auscultation: clear to auscultation bilaterally and diminished lung sounds Cardio Jugular venous distension: no JVD Palpation: normal PMI Rate: regular rate Rhythm: regular rhythm Heart sounds: S1 normal heart sound present, S2 normal heart sound present and Murmur heart sound present diastolic at the base and systolic mid, decrescendo and crescendo GI Auscultation: normal bowel sounds Skin General skin exam: no rashes or lesions noted Neuro General: patient oriented x3 and no focal motor deficits Extrem General: Yes no clubbing, cyanosis or edema Psych Appearance: grossly normal Office Procedures EKG Details: EKG shows sinus bradycardia otherwise normal EKG 40026-[id number], Complete Assessment & Plan Assessment & Plan (1) Aortic stenosis: Code(s): I35.0 - Nonrheumatic aortic (valve) stenosis Category: Medical Plan: Patient with moderate aortic stenosis and mild aortic regurgitation with calcific aortic valve changes 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 She has remained stable. This does not require intervention at this point time. Will continue monitor by echocardiogram on annual basis. This is not likely responsible for his symptoms. Continue low-dose aspirin therapy. Continue vascular risk factor modification with statin therapy with a advise aggressive blood pressure control. (2) Sinus bradycardia: Code(s): R00.1 - Bradycardia, unspecified Category: Medical Plan: Sinus bradycardia without syncopal episode or any symptoms that is suggestive that she would benefit from pacemaker therapy. Avoid rate lowering medications. No pacing therapy required. (3) HTN (hypertension): Code(s): I10 - Essential (primary) hypertension Category: Medical Plan: Hypertension which is currently well optimized advised to monitor blood pressure at home maintain a log. Goal blood pressure less than 130/84. Low-salt diet was advised. Advised to maintain activity level, see below. (4) SOB (shortness of breath): Code(s): R06.02 - Shortness of breath Plan: Shortness of breath on exertion without any overt signs of heart failure. He is not suggestive of underlying cardiovascular disease and she has no history of obstructive coronary artery disease. The symptoms most likely related to deconditioning and aging. Recommend to increase activity level as tolerated. Encouraged to continue maintain good nutrition balance exercises. Will follow up in the clinic in 1 year's time, sooner p.r.n.. Thank you for allowing me to partake in his care Coding Level of Care Code Est Pt Level 4 (93464) Complex EM visit Add On G2211 Diagnoses Aortic stenosis I35.0 Sinus bradycardia R00.1 HTN (hypertension) I10 SOB (shortness of breath) R06.02 CPT Codes EKG - CPT: 05360-[id number], Complete ([id number])
--- OUTSIDE RECORDS SUMMARY | 2025-01-10 11:32 | XMS_ITS | Encounter Summary ---
Author Organization [facility] Address [address] [place] [address] [address] [address] Care Team Providers Care Gifts Officer Name Role Phone Juan Alberto Davison MD Primary Care Provider [phone]- [phone] Encounter Details Date Type Department Care Team (Latest Contact Info) Description 07/04/2021 Abstract [facility] CONVERSIONS Dental, Provider, DDS Social History Tobacco [...] Description 02/15/2025 2:30 PM EDT Office Visit [facility] CHC MED & PEDS [address] [place] [address] Juan Alberto Davison MD [address] [place] [address] documented as of this encounter Visit Diagnoses Not on filedocumented in this encounter Care Teams Gifts Officer Relationship Specialty Start Date End Date Juan Alberto Davison MD [address] [place] [address] PCP - General Internal Medicine 01/01/17 [facility] Cabinet Builder Cardiology 09/07/23 documented as of this encounter
--- OUTSIDE RECORDS SUMMARY | 2025-01-10 11:33 | XMS_ITS | Clinical Summary ---
Author Organization [facility] Address [address] [place] [address] Care Team Providers Care Sealing Machine Operator Name Role Phone Juan Alberto Davison MD Primary Care Provider [phone] Social History Tobacco Use Types Packs/Day Years [...] series) 2016 Cholesterol Screening (Lipid Panel) 05/24/2022 Falls Risk Assessment 05/24/2022 Osteoporosis Screening (Bone Density Screening) 05/24/2022 Social Influencers of Health Screening 05/24/2022 COVID-19 Vaccine (1 - 2023-2 5 season) 2024 Depression Screening 06/21/2024 Influenza Vaccine (#1) 2025 HIB Vaccines Aged [...] age to complete this topic Care Teams Sealing Machine Operator Relationship Specialty Start Date End Date Juan Alberto Davison MD [address] [place] [address] PCP - General 07/07/22
== END 2025-01-10 11:49 | disposition home or self-care (01) ==
LOC: HO.HCS 10:26
PROVIDERS: PCP Internal Medicine; Visit Provider Internal Medicine Cardiovascular Disease
DX: I35.0 Nonrheumatic aortic (valve) stenosis (principal); R00.1 Bradycardia, unspecified; I10 Essential (primary) hypertension; R06.02 Shortness of breath
CPT/HCPCS: 93010; 99214; G2211

== ENCOUNTER → 2025-01-10 10:25 | Outpatient (BNVA) | payer MEDICARE, MEDICAID, SELFPAY | PROVIDERS: PCP Internal Medicine; Visit Provider Internal Medicine Cardiovascular Disease | DX: I35.0 Nonrheumatic aortic (valve) stenosis (principal); I10 Essential (primary) hypertension; R00.1 Bradycardia, unspecified; R06.02 Shortness of breath | CPT/HCPCS: 93005; 99212 ==

== ENCOUNTER 2025-03-07 10:57 | Outpatient (AMB) | payer MEDICARE, MEDICAID, SELFPAY ==
--- NOTE | 2025-03-07 11:02 | A.OFFVIS_ITS ---
Vital Signs 03/07/25 11:03 Height 5 ft 1 in Weight 127 lb BMI 24.0 BP 120/66 Blood Pressure Location Rt brachial Position Sitting Pulse 54 Pulse Source Pulse Oximeter Pulse Oximetry (%) 98 Oxygen Delivery Method Room Air Intake Visit Reasons: 30m 6 mo f/u Abd pain, Constipation Intake Note: ESTABLISHED PATIENT for abd pain + constipation mgmt w/ hx of SBO. Chief Complaint; C.O. intermittent episodes of abd pain (epigastric). Pt states that she takes pepto PRN which resolves these episodes. No additional sx. Has questions about senna dosing. Fiber Locking Supervisor Required: Yes Fiber Locking Supervisor Services: Fiber Locking Supervisor Present Accompanied by: Daughter Allergies No Known Allergies Allergy (Verified 09/06/24 11:09) HPI HPI 30m 6 mo f/u Abd pain, Constipation: Details: LAST VISIT: History of small bowel obstruction Abdominal pain Chronic idiopathic constipation Plan Patient no longer has abdominal pain or discomfort. Reports that she is moving her bowels with Senokot. Continue senna, increase fluid intake and activity to promote better bowel motility. They also take fiber daily and probiotics. Follow-up in 6 months, sooner on as needed basis. Both patient and her granddaughter are agreeable to plan of care verbalize understanding of instructions. They were given the opportunity to ask questions and all questions answered. ? Thank you for allowing me to participate in her care New sennosides (Natural Senna Laxative) 17.2 mg (2 x 8.6 mg) PO BEDTIME 180 tabs 3RF TODAY'S VISIT Patient is here today for follow-up. Patient is accompanied by her daughter. Patient reports that she has been feeling well. Occasional epigastric pain and patient uses Pepto-Bismol with good affect. Patient reports that she has been taking senna as needed. Takes it every 2-3 days if no bowel movement. Patient is moving her bowels better. Patient dyspepsia, dysphagia or odynophagia. Denies melena, hematochezia, unintentional weight loss or ribbon like stools. Patient reports to be feeling better. Reports to have good appetite. [facility] Medical History Aortic stenosis Thoracic aortic atherosclerosis Aortic regurgitation Diastolic dysfunction HTN (hypertension) Papillary fibroelastoma Surgical History Hx of colonoscopy Hx of cholecystectomy Hx of cardiac cath History of partial hysterectomy Family History Father No problems noted. Mother CAD (coronary artery disease) Social History Alcohol intake: never Patient Tobacco Use Status: Never used Tobacco Review of Systems Const Denies weight gain and Denies weight loss ENT Reports no additional complaints, Denies dysphagia and Denies odynophagia Card Reports no additional complaints Resp Reports no additional complaints GI Denies abdominal pain, Denies belching, Denies melena, Denies bloating, Denies change in bowel habits, Denies dysphagia, Denies excessive flatus, Denies dyspepsia, Denies heartburn, Denies diarrhea, Denies loose stools, Denies nausea, Denies odynophagia and Denies vomiting Reports no additional complaints Musc Reports no additional complaints Neuro Reports no additional complaints Psych Reports no additional complaints Endo Reports no additional complaints Physical Exam Vital Signs: Last Vital Signs Pulse 54 03/07/25 11:03 BP 120/66 03/07/25 11:03 Pulse Ox 98 03/07/25 11:03 Oxygen Delivery Method Room Air 03/07/25 11:03 BMI result Body Mass Index 24.0 Const General: healthy appearing, no acute distress and well developed Nutritional Appearance: well nourished Orientation/consciousness: patient oriented x3 Resp Effort & Inspection: normal respiratory effort, able to speak in complete sentences, no tracheal deviation and symmetric chest movement Auscultation: clear to auscultation bilaterally Cardio Rate: regular rate GI Inspection: Yes normal to inspection and No distended Palpation (GI): Soft to palpation, not firm, nontender and No hepatosplenomegaly present Auscultation: normal bowel sounds General: Yes no CVA tenderness Back/Spine/Pelvis Back: no CVA tenderness Skin General skin exam: elasticity normal, turgor normal and dry skin Neuro General: patient oriented x3 Psych Appearance: grossly normal Mental Status: mental status grossly normal Assessment & Plan Assessment & Plan (1) History of small bowel obstruction: Code(s): Z87.19 - Personal history of other diseases of the digestive system (2) Abdominal pain: Code(s): R10.9 - Unspecified abdominal pain Qualifiers: Abdominal location: epigastric Qualified Code(s): R10.13 - Epigastric pain (3) Chronic idiopathic constipation: Code(s): K59.04 - Chronic idiopathic constipation Plan Patient can take famotidine as needed for epigastric pain. Patient denies having any acid reflux we will hold off on PPI. Continue avoiding dietary triggers. Patient is doing well. Denies eating spicy, greasy or fast food. Denies eating late at night. Staying upright for minimum 3 hours after meals recommended. Patient will take senna as needed. Increase fluid intake and activity to promote better bowel motility. Patient will follow-up in our office in 6 months, sooner on as needed basis. She is agreeable to this plan and verbalizes understanding of instructions. She was given the opportunity to ask questions and all questions answered. Thank you for allowing me to participate in her care Medications: New famotidine (Pepcid) 20 mg PO DAILY 30 tabs 3RF K21.9 - Gastro-esophageal reflux disease without esophagitis Coding Level of Care Code Est Pt Level 3 (62506) Diagnoses History of small bowel obstruction Z87.19 Epigastric pain R10.13 Abdominal location: epigastric Chronic idiopathic constipation K59.04 Time Spent (min) 25 Comment 15 minutes spent with patient and additional 10 minutes spent reviewing her records
[2025-03-07 11:03] VITALS: BP 120/66; PULSE 54; O2SAT 98; BMI 24.0
--- OUTSIDE RECORDS SUMMARY | 2025-03-07 13:55 | XMS_ITS | Encounter Summary ---
Author Organization true[x] [employer] [facility] Address [address] [place] [address] Care Team Providers Care Coater Operator Name Role Phone Juan Alberto Davison MD Primary Care Provider [phone] Encounter Details Date Type Department Care Team [...] on filedocumented in this encounter Care Teams Coater Operator Relationship Specialty Start Date End Date Juan Alberto Davison MD [address] [place] [address] PCP - General Internal Medicine 01/01/17 [facility] Nut Cracker Cardiology 09/07/23 documented as of this encounter
--- OUTSIDE RECORDS SUMMARY | 2025-03-07 13:55 | XMS_ITS | Encounter Summary ---
Author Organization [employer] Address [address] [place] [address] 7 [place] [address] Care Team Providers Care Communications Planner Name Role Phone Juan Alberto Davison MD Primary Care Provider [phone] Reason for Visit * Reason Comments Med Refill Encounter Details Date Type Department Care Team ([facility] st Contact Info) Description 11/25/2022 Refill [facility] [address] [place], [place] [phone] Juan Alberto Davison MD [address] [place] [address] Social History Tobacco Use Types Packs/Day Years [...] documented as of this encounter Care Teams Communications Planner Relationship Specialty Start Date End Date Juan Alberto Davison MD [address] [place] [address] PCP - General Internal Medicine 01/01/17 [facility] Overhead Foreman Cardiology 09/07/23 documented as of this encounter
--- OUTSIDE RECORDS SUMMARY | 2025-03-07 13:55 | XMS_ITS | Encounter Summary ---
Author Organization [employer] [facility] Address [address] [place] [address] [place] [address] Care Team Providers Care Loss Prevention Representative Name Role Phone Juan Alberto Davison MD Primary Care Provider [phone] Encounter Details Date Type Department Care Team [...] on filedocumented in this encounter Care Teams Loss Prevention Representative Relationship Specialty Start Date End Date Juan Alberto Davison MD [address] [place] [address] PCP - General Internal Medicine 01/01/17 [facility] Treatment Plant Operator Cardiology 09/07/23 documented as of this encounter
--- OUTSIDE RECORDS SUMMARY | 2025-03-07 13:55 | XMS_ITS | Clinical Summary ---
Author Organization [facility] Address [address] [place] [address] Care Team Providers Care Attendant Sales Name Role Phone Juan Alberto Davison MD Primary Care Provider [phone] Social History Tobacco Use Types Packs/Day Years [...] 05/24/2022 Social Influencers of Health Screening 05/24/2022 Depression Screening 06/21/2024 COVID-19 Vaccine (1 - 2023-2 5 season) 2025 Influenza Vaccine (#1) 2025 HIB Vaccines Aged [...] age to complete this topic Care Teams Attendant Sales Relationship Specialty Start Date End Date Juan Alberto Davison MD [address] [place] [address] PCP - General 07/07/22
--- OUTSIDE RECORDS SUMMARY | 2025-03-07 13:55 | XMS_ITS | Clinical Summary ---
Author Organization [employer] Address [address] [place] [address] [address] [place] [address] Care Team Providers Care Electronic Pagination System Operator Name Role Phone Juan Alberto Davison MD Primary Care Provider [phone] Allergies Active Allergy Reactions Criticality Noted Date [...] EVERY NIGHT AT BEDTIME 30 tablet 5 5 Active atorvastatin (Lipitor) 20 MG tablet TAKE ONE TABLET EVERY NIGHT AT BEDTIME 30 tablet 5 5 Active meclizine (Antivert) 25 MG tablet 1 tab po daily 30 tablet 3 5 Active Diclofenac Sodium 1 % gelIndications: Acute pain of left knee To apply to the affected area 3 times a day 100 g 5 Active Active Problems Problem Noted Date Diagnosed Date 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 Patient will benefit from OP therapy with a female Iranian speaking counselor in [place]. At this time Sherry Matthews meets criteria for Visit Diagnoses: Problem List Items Addressed This Visit Other Prolonged grief disorder Patient ready to address current needs Yes Strengths include supportive family PLAN: 1. Follow up with [facility]: Not recommended for follow-up 2. Patient goal [...] 4:40 PM EST): Will send trial of sennokot and rec f/u PCP Intestinal obstruction 07/09/2022 [...] disease 01/01/2017 Coronary artery disease invo lving kashia coronary artery of kashia heart without angina pectoris 01/01/2017 Essential hypertension 01/01/2017 Hyperlipidemia 01/01/2017 Peripheral vascular disease 01/01/2017 Encounters Date Type Department Care Team Description 02/15/2025 2:30 PM EDT Office Visit [facility] [address] [place] [address] Juan Alberto Davison MD Primary osteoarthritis of left knee (Primary Dx); Essential hypertension 02/15/2025 Travel 02/02/2025 Results Follow-Up [facility] [address] [place] [address] Kait Taveras RN XR Knee 3 Views Left 02/02/2025 Orders Only [facility] [address] [place] [address] Juan Alberto Davison MD 01/17/2025 3:00 PM EDT Office Visit [facility] [address] [place] [address] Juan Alberto Davison MD Acute pain of left knee (Primary Dx) 01/17/2025 Travel 01/16/2025 Telephone [facility] [address] [place] [address] Juan Alberto Davison MD Nurse Triage from Last 3 Months Immunizations Immunization Administration Dates Next Due Influenza High-dose Quadriva lent Preservative Free 01/24/2023,03/05/2022,02/22/2021 Influenza Quadrivalent Adjuvanted 03/11/2020 Influenza injectable quadriv alent preservative free 03/23/2017 Influenza, High Dose Seasona l, Preservative Free 03/24/2024,03/15/2019,03/10/2018 Influenza, IIV3, injectable 03/23/2017 Pfizer Covid-19 Vaccine 12+ 03/26/2021, 1,07/31/2020 Pneumococcal Conjugate PCV 13 08/11/2017 Pneumococcal Polysaccharide [...] Answer Date Recorded Patient Health Questionnaire-9 Score 0 02/15/2025 Patient Health Questionnaire-9 Score 0 02/15/2025 Last PHQ-9: Questionnaire Data Not on file 0 02/15/2025 Housing Stability Answer Date Recorded What is [...] Answer Date Recorded Patient Health Questionnaire-2 Score 0 02/15/2025 Internet Access Answer Date Recorded Internet Access [...] Sign Reading Time Taken Comments Blood Pressure 174/71 02/15/2025 2:37 PM EDT Pulse 51 02/15/2025 2:37 PM EDT Temperature 36.8 C (98.2 F) 02/15/2025 2:37 PM EDT Respiratory Rate 20 02/15/2025 2:37 PM EDT Oxygen Saturation 98% 02/15/2025 2:37 PM EDT Inhaled Oxygen Concentration - - Weight 59.9 kg (132 lb) 02/15/2025 2:37 PM EDT Height 149.9 cm (4' 11 ) 02/15/2025 2:37 PM EDT Body Mass Index 26.66 02/15/2025 2:37 PM EDT Plan of Treatment Health Maintenance Due Date Last Done Comments Lipid Panel 1941 Alcohol/Substance Use Screening 1953 RSV Patients and Patients Aged 60 years or older (1 - 1-dose 75+ series) 2016 COVID-19 Vaccine ( season) 2025 01/10/2022, 03/26/2021, 08/21/2020, Additional history exists Influenza Vaccine (#1) 2025 , 01/24/2023, 03/05/2022, Additional history exists SDOH Screening 06/27/2025 06/27/2024 Depression Screening 02/15/2026 02/15/2025, 02/16/20 Tobacco Screening 02/15/2026 02/15/2025 DTaP/Tdap/Td Vaccines (2 - Td or Tdap) 03/15/2029 03/15/2019 Pneumococcal Vaccine: 50+ Years Completed 03/15/2019, 08/11/2017 Zoster Vaccines Completed 02/05/2020, 06/21, 01/01/2017 HIB Vaccines Aged Out No longer eligi [...] on patient's age to complete this topic Procedures Procedure Name Priority Date/Time Associated Diagnosis Comments XR KNEE 3 VIEWS LEFT Routine 01/31/2025 Acute pain of left knee from Last 3 Months Results * XR Knee 3 Views Left (01/31/2025) Anatomical Region Laterality Modality Lower Extremities, Knee Left Radiogra phic Imaging us Juan Alberto Davison MD IMG XR PROCEDURES Final Res ult from Last 3 Months Insurance MEDICARE [facility] Care Teams Electronic Pagination System Operator Relationship Specialty Start Date End Date Juan Alberto Davison MD [address] [place] [address] PCP - General Internal Medicine 01/01/17 [facility] Wigs Salesperson Cardiology 09/07/23
--- OUTSIDE RECORDS SUMMARY | 2025-03-07 13:55 | XMS_ITS | Encounter Summary ---
Author Organization [employer] Address [address] [facility] 7 [place] [address] Care Team Providers Care Teacher Private Name Role Phone Juan Alberto Davison MD Primary Care Provider [phone] Encounter Details Date Type Department Care Team ([facility] st Contact Info) Description 02/02/2025 Orders Only [facility] [address] [place], [place] [phone] Juan Alberto Davison MD [address] [place] [address] Social History Tobacco Use Types Packs/Day Years [...] documented as of this encounter Care Teams Teacher Private Relationship Specialty Start Date End Date Juan Alberto Davison MD [address] [place] [address] PCP - General Internal Medicine 01/01/17 [facility] Supervisor Furnace Process Cardiology 09/07/23 documented as of this encounter
--- OUTSIDE RECORDS SUMMARY | 2025-03-07 13:55 | XMS_ITS | Encounter Summary ---
Author Organization [employer] Address [address] [place] [address] [address] [place] [address] Care Team Providers Care Local Delivery Truck Driver Name Role Phone Juan Alberto Davison MD Primary Care Provider [phone] Reason for Visit * Reason Comments Med Refill Encounter Details Date Type Department Care Team ([facility] st Contact Info) Description 05/10/2023 Refill [facility] [address] [place], [place] [phone] Juan Alberto Davison MD [address] [place] [address] Constipation, unspecified constipation type Social History Tobacco [...] documented as of this encounter Care Teams Local Delivery Truck Driver Relationship Specialty Start Date End Date Juan Alberto Davison MD [address] [place] [phone] PCP - General Internal Medicine 01/01/17 [facility] Data Miner Cardiology 09/07/23 documented as of this encounter
== END 2025-03-07 11:25 | disposition home or self-care (01) ==
LOC: HO.HGI 10:58
PROVIDERS: PCP Internal Medicine; Visit Provider Nurse Practitioner Family
DX: Z87.19 Personal history of other diseases of the digestive system (principal); R10.13 Epigastric pain; K59.04 Chronic idiopathic constipation
CPT/HCPCS: 99213

== ENCOUNTER → 2025-03-07 10:57 | Outpatient (BNVA) | payer MEDICARE, MEDICAID, SELFPAY | PROVIDERS: PCP Internal Medicine; Visit Provider Nurse Practitioner Family | DX: R10.13 Epigastric pain (principal); K59.04 Chronic idiopathic constipation; Z87.19 Personal history of other diseases of the digestive system | CPT/HCPCS: 99212 ==